=== PATIENT | female | born 1990 | race Hispanic/Latino ===

== ENCOUNTER 2017-11-01 03:45 | Emergency (ER) | payer SELFPAY ==
[2017-11-01] MEDS ORDERED: NA CHLORIDE 0.9% 1,000 ML ONE (04:19)
[2017-11-01 04:43] LABS: Absolute Lymphocytes (CBC) 2.6 K/uL (0.7-4.9); Absolute Monocytes 0.8 K/uL (0.1-1.3); Absolute Neutrophil 14.3 K/uL (1.8-8.0); Basophils % 0.6 % (0-1.3); Eosinophils % 0.9 % (0-4.4); Hematocrit 30.4 % (36.0-45.0); Lymphocytes % 14.6 % (15.3-44.8); MCH 30.8 pg (27.0-35.0); MCV 86.5 fL (80-100); Monocytes % 4.7 % (3.3-12.3); RBC Red Blood Cell Count 3.52 M/uL (3.86-4.86)
[2017-11-01 04:57] LABS: Glucose Level 114 mg/dL (65-120)
[2017-11-01 04:58] LABS: BUN Blood Urea Nitrogen 7 mg/dL (6-20)
[2017-11-01 05:02] LABS: Bicarbonate 25 mEq/L (21-31); Sodium Level 137 mEq/L (135-145)
[2017-11-01] MEDS ORDERED: MORPHINE 4 MG/ML SYR ONE (05:11)
[2017-11-01] MEDS ORDERED: ONDANSETRON 4 MG/2 ML VIAL ONE (05:11)
[2017-11-01] MEDS ORDERED: KCL 20 MEQ/100 mL IVPB 20 MEQ/100 ML BAG IV ONE (05:40)
[2017-11-01] MEDS ORDERED: CEFTRIAXONE/SWI 1gm 1 GM/10 ML SYR ONE (05:40)
--- NOTE | 2017-11-01 06:58 | ER ---
Nurse's Notes [facility] Name: Shira Muse Age: 27 yrs Sex: Female : 1990 Arrival Date: 11/01/2017 Time: 03:50 Bed 15 Private MD: Diagnosis: Pelvic pain. Leukocytosis. S/P ( D and C ). Vaginal bleeding Presentation: 11/01 04:00 Presenting complaint: Patient states: "I am bleeding more than I should, [facility] and about 5 hours ago I began bleeding and I am soaking 4 pads within the hour and my stomach hurts.". Transition of care: patient was not received from another setting of care. Onset of symptoms was October 31, 2017 at 23:00. Risk Assessment: Do you want to hurt yourself or someone else? Patient reports no desire to harm self or others. Initial Sepsis Screen: Does the patient meet any 2 criteria? No. Patient's initial sepsis screen is negative. Does the patient have a suspected source of infection? No. Patient's initial sepsis screen is negative. Care prior to arrival: None. 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 - Social history:: Smoking status: Patient/guardian denies using tobacco. - Ebola Screening: : Patient negative for fever greater than or equal to 101.5 degrees Fahrenheit, and additional compatible Ebola Virus Disease symptoms Patient denies exposure to infectious person. Screenin:42 Abuse screen: Denies threats or abuse. Denies injuries from another. Nutritional bs1 screening: No deficits noted. Tuberculosis screening: No symptoms or risk factors identified. Fall Risk None identified. Assessment: 04:05 General: Appears in no apparent distress. uncomfortable, slender, Behavior is bs1 cooperative, anxious, crying. Pain: Complains of pain in lower abdomen/vaginal area. Neuro: Level of Consciousness is awake, alert, obeys commands, Oriented to person, place, time, situation, Appropriate for age. Cardiovascular: Denies chest pain, shortness of breath, Heart tones S1 S2 present Capillary refill < 3 seconds Patient's skin is warm and dry. Respiratory: Airway is patent Trachea midline Respiratory effort is even, unlabored, Respiratory pattern is regular, symmetrical, Breath sounds are clear bilaterally. GI: Abdomen is round non-distended, Bowel sounds present X 4 quads. Reports lower abdominal pain. GI: Reports nausea. : Reports cramping, lower quadrant(s) pain in suprapubic area lower quadrant(s) vaginal bleeding that is with clots, heavy flow. EENT: No signs and/or symptoms were reported regarding the EENT system. Derm: Skin is intact, Skin is pink, warm \\T\\ dry. Musculoskeletal: Circulation, motion, and sensation intact. Capillary refill < 3 seconds, Range of motion: intact in all extremities. 04:35 Reassessment: Assisted Dr Acosta with Pelvic exam, patient tolerated. bs1 05:15 Reassessment: Patient appears in no apparent distress at this time. Patient and/or bs1 family updated on plan of care and expected duration. Pain level reassessed. Patient is alert, oriented x 3, equal unlabored respirations, skin warm/dry/pink. Friend at bedside, order to give morphine and zofran. No further needs at this time. 05:35 Reassessment: Dr Acosta at bedside informing patient of POC/pending transvaginal US. bs1 Patient states understanding. 06:25 Reassessment: Patient appears in no apparent distress at this time. No changes from bs1 previously documented assessment. Patient and/or family updated on plan of care and expected duration. Pain level reassessed. Patient is alert, oriented x 3, equal unlabored respirations, skin warm/dry/pink. Pending transvaginal Ultrasound. Potassium infusing trough IV. patient in no apparent distress. no further needs. 06:44 Reassessment: Ultrasound at bedside. bs1 07:05 Reassessment: Patient appears in no apparent distress at this time. Patient and/or tw2 family updated on plan of care and expected duration. Pain level reassessed. Patient is alert, oriented x 3, equal unlabored respirations, skin warm/dry/pink. 08:15 Reassessment: Patient appears in no apparent distress at this time. No changes from tw2 previously documented assessment. Patient and/or family updated on plan of care and expected duration. Pain level reassessed. Patient is alert, oriented x 3, equal unlabored respirations, skin warm/dry/pink. Vital Signs: 04:09 BP 136 / 91 LA Sitting (auto/reg); Pulse 88 LA; Resp 14; Temp 98.3(O); Pulse Ox 99% on bs1 R/A; Weight 54.43 kg; Height 5 ft. 1 in. (154.94 cm); Pain 8/10; 04:15 BP 132 / 81; Pulse 87; Resp 15; Pulse Ox 97% on R/A; bs1 04:30 BP 143 / 83; Pulse 92; Resp 16 S; Pulse Ox 100% on R/A; bs1 05:30 BP 115 / 78; Pulse 63; Resp 16; Pulse Ox 99% ; bs1 06:22 BP 114 / 71; Pulse 63; Resp 16; Temp 97.7(O); Pulse Ox 98% on R/A; Pain 6/10; bs1 07:05 BP 120 / 81; Pulse 61; Resp 17; Pulse Ox 99% on R/A; tw2 08:15 BP 110 / 77; Pulse 63; Resp 17; Pulse Ox 98% on R/A; tw2 04:09 Body Mass Index 22.67 (54.43 kg, 154.94 cm) bs1 ED Course: 03:50 Patient arrived in ED. al2 03:52 Nando Lynch, RN is Primary Nurse. ao 03:54 Dangelo Acosta MD is Attending Physician. pkl 03:59 Primary Nurse role handed off by Nando Lynch, VERONICA bs1 03:59 Althea Justice, VERONICA is Primary Nurse. bs1 04:02 Triage completed. bs1 04:25 Inserted saline lock: 22 gauge in right antecubital area, using aseptic technique. bs1 Blood collected. 04:35 Assist provider with pelvic exam: Set up pelvic tray. Performed by Dangelo Acosta MD Patient bs1 tolerated well. 04:42 Arm band placed on left wrist. bs1 04:42 Patient has correct armband on for positive identification. Bed in low position. Call bs1 light in reach. Side rails up X 1. Pulse ox on. NIBP on. 06:56 Ultrasound completed. Patient tolerated well. aa4 06:56 Jl Espitia MD is Referral Physician. pkl 06:59 US Transvaginal Study (Probe) In Process Unspecified. EDMS 07:04 Primary Nurse role handed off by Althea Justice RN tw2 07:04 Delmy Alarcon RN is Primary Nurse. tw2 07:04 Awaiting: COMPLETION OF IV MEDICATION PRIOR TO DISCHARGE. tw2 07:54 Primary Nurse role handed off by Delmy Alarcon RN tw2 07:55 Delmy Alarcon RN is Primary Nurse. tw2 08:16 IV discontinued, intact, bleeding controlled, No redness/swelling at site. Pressure tw2 dressing applied. Administered Medications: 04:37 Drug: NS 0.9% 1000 ml Route: IV; Rate: 125 ml/hr; Site: right antecubital; bs1 08:12 Follow up: Response: No adverse reaction; IV Status: Order to discontinue infusion tw2 05:16 Drug: Zofran 4 mg Route: IVP; Site: right antecubital; bs1 05:44 Follow up: Response: No adverse reaction bs1 05:18 Drug: morphine 2 mg Route: IVP; Site: right antecubital; bs1 05:45 Follow up: Response: No adverse reaction bs1 05:43 Drug: Rocephin 1 grams Route: IV; Rate: bolus; Site: right antecubital; bs1 05:44 Drug: Potassium Chloride 20 mEq Route: IV; Rate: calculated rate; Site: right bs1 antecubital; 08:12 Follow up: Response: No adverse reaction; IV Status: Completed infusion tw2 Outcome: 06:57 Discharge ordered by . pkl 08:16 Discharged to home ambulatory, with significant other. tw2 08:16 Condition: stable 08:16 Discharge instructions given to patient, significant other, Instructed on discharge instructions, follow up and referral plans. medication usage, Demonstrated understanding of instructions, follow-up care, medications, Prescriptions given X 2. 08:17 Patient left the ED. tw2 Signatures: Dispatcher [facility] Dangelo Acosta MD MD pkl Tiffanie Denny aa4 Nando Lynch RN RN ao Wise, Tara, RN RN tw2 Althea Justice, RN RN bs1 Gayle, Charisma gutiérrez
--- NOTE | 2017-11-01 06:58 | EDPHYS ---
Physician Documentation [facility] Name: Shira Muse Age: 27 yrs Sex: Female : 1990 Arrival Date: 11/01/2017 Time: 03:50 Bed 15 Private MD: ED Physician Dangelo Acosta HPI: 11/01 05:04 This 27 yrs old Female presents to ER via Ambulatory with complaints of pkl Vaginal Bleeding, Vaginal Pain. 05:04 The patient presents with pelvic pain, vaginal bleeding that is. Onset: The pkl symptoms/episode began/occurred just prior to arrival, 4 hour(s) ago. Patient [facility] [place] Tonight she started having increase vaginal bleeding and pelvic pain.. 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 - Social history:: Smoking status: Patient/guardian denies using tobacco. - Ebola Screening: : Patient negative for fever greater than or equal to 101.5 degrees Fahrenheit, and additional compatible Ebola Virus Disease symptoms Patient denies exposure to infectious person. ROS: 05:10 Positive for pelvic pain, vaginal bleeding. pkl 05:10 Eyes: Negative for injury, pain, redness, and discharge, ENT: Negative for injury, pain, and discharge, Neck: Negative for injury, pain, and swelling, Cardiovascular: Negative for chest pain, palpitations, and edema, Respiratory: Negative for shortness of breath, cough, wheezing, and pleuritic chest pain, Abdomen/GI: Negative for abdominal pain, nausea, vomiting, diarrhea, and constipation, Back: Negative for injury and pain. 05:10 : Positive for pelvic pain, vaginal bleeding. 05:10 MS/extremity: Negative for acute changes. 05:10 Skin: Negative for rash. 05:10 Neuro: Negative for altered mental status. Exam: 05:10 Head/Face: Normocephalic, atraumatic. Eyes: Pupils equal round and reactive to light, pkl extra-ocular motions intact. Lids and lashes normal. Conjunctiva and sclera are non-icteric and not injected. Cornea within normal limits. Periorbital areas with no swelling, redness, or edema. ENT: Nares patent. No nasal discharge, no septal abnormalities noted. Tympanic membranes are normal and external auditory canals are clear. Oropharynx with no redness, swelling, or masses, exudates, or evidence of obstruction, uvula midline. Mucous membranes moist. Neck: Trachea midline, no thyromegaly or masses palpated, and no cervical lymphadenopathy. Supple, full range of motion without nuchal rigidity, or vertebral point tenderness. No Meningismus. Chest/axilla: Normal chest wall appearance and motion. Nontender with no deformity. No lesions are appreciated. Cardiovascular: Regular rate and rhythm with a normal S1 and S2. No gallops, murmurs, or rubs. Normal PMI, no JVD. No pulse deficits. Respiratory: Lungs have equal breath sounds bilaterally, clear to auscultation and percussion. No rales, rhonchi or wheezes noted. No increased work of breathing, no retractions or nasal flaring. 05:10 Abdomen/GI: Bowel sounds: normal, Palpation: soft, mild abdominal tenderness, in the suprapubic area. 05:10 Back: Exam negative for acute changes. 05:10 : Pelvic Exam: Speculum exam: mild bleeding, a female verification engineer was present for the exam. 05:10 Musculoskeletal/extremity: Exam is negative for acute changes. 05:10 Skin: Exam negative for rash. 05:10 Neuro: Orientation: is normal, Mentation: is normal, Cranial nerves: grossly normal, Motor: is normal. Vital Signs: 04:09 BP 136 / 91 LA Sitting (auto/reg); Pulse 88 LA; Resp 14; Temp 98.3(O); Pulse Ox 99% on bs1 R/A; Weight 54.43 kg; Height 5 ft. 1 in. (154.94 cm); Pain 8/10; 04:15 BP 132 / 81; Pulse 87; Resp 15; Pulse Ox 97% on R/A; bs1 04:30 BP 143 / 83; Pulse 92; Resp 16 S; Pulse Ox 100% on R/A; bs1 05:30 BP 115 / 78; Pulse 63; Resp 16; Pulse Ox 99% ; bs1 06:22 BP 114 / 71; Pulse 63; Resp 16; Temp 97.7(O); Pulse Ox 98% on R/A; Pain 6/10; bs1 07:05 BP 120 / 81; Pulse 61; Resp 17; Pulse Ox 99% on R/A; tw2 08:15 BP 110 / 77; Pulse 63; Resp 17; Pulse Ox 98% on R/A; tw2 04:09 Body Mass Index 22.67 (54.43 kg, 154.94 cm) bs1 MDM: 03:54 Patient medically screened. pkl 05:17 Data reviewed: vital signs, nurses notes, lab test result(s). pkl 05:56 Data reviewed: radiologic studies, ultrasound. pkl 11/01 04:18 Order name: CBC with Diff; Complete Time: 05:03 pkl 11/01 04:18 Order name: Chem 7; Complete Time: 05:31 pkl 11/01 04:18 Order name: Rh Typing; Complete Time: 05:03 pkl 11/01 04:18 Order name: Quantitative Hcg; Complete Time: 05:31 pkl 11/01 05:46 Order name: US Transvaginal Study (Probe) pkl Administered Medications: 04:37 Drug: NS 0.9% 1000 ml Route: IV; Rate: 125 ml/hr; Site: right antecubital; bs1 08:12 Follow up: Response: No adverse reaction; IV Status: Order to discontinue infusion tw2 05:16 Drug: Zofran 4 mg Route: IVP; Site: right antecubital; bs1 05:44 Follow up: Response: No adverse reaction bs1 05:18 Drug: morphine 2 mg Route: IVP; Site: right antecubital; bs1 05:45 Follow up: Response: No adverse reaction bs1 05:43 Drug: Rocephin 1 grams Route: IV; Rate: bolus; Site: right antecubital; bs1 05:44 Drug: Potassium Chloride 20 mEq Route: IV; Rate: calculated rate; Site: right bs1 antecubital; 08:12 Follow up: Response: No adverse reaction; IV Status: Completed infusion tw2 Disposition: 11/01/17 06:57 Discharged to Home. Impression: Pelvic pain. Leukocytosis. S/P ( D and C ). Vaginal bleeding. - Condition is Stable. - Prescriptions for Ultram 50 mg Oral Tablet - take 1 tablet by ORAL route every 8 hours As needed; 15 tablet. Doxycycline Hyclate 100 mg Oral Tablet - take 1 tablet by ORAL route every 12 hours; 14 tablet. - Medication Reconciliation Form, Thank You Letter, Antibiotic Education, Prescription Opioid Use, Family Work Release form. - Follow up: Jl Espitia MD; When: 2 - 3 days; Reason: Re-evaluation by your physician. - Problem is new. - Symptoms have improved. Signatures: Dispatcher [employer] EDMS Dangelo Acosta MD MD pkl Delmy Alarcon RN RN tw2 Althea Justice RN RN bs1 Corrections: (The following items were deleted from the chart) 08:17 06:57 11/01/2017 06:57 Discharged to Home. Impression: Pelvic pain. Leukocytosis. S/P tw2 ( D and C ). Vaginal bleeding. Condition is Stable. Forms are Medication Reconciliation Form, Thank You Letter, Antibiotic Education, Prescription Opioid Use. Follow up: Jl Espitia; When: 2 - 3 days; Reason: Re-evaluation by your physician. Problem is new. Symptoms have improved. pkl
[2017-11-01 08:46] VITALS: TEMP 97.7
[2017-11-01 08:48] VITALS: BP 110/77; O2SAT 98
--- NOTE | 2017-11-01 09:07 | RAD REPORT ---
EXAM DESCRIPTION: US - Transvaginal Study Probe - 11/01/2017 6:59 am CLINICAL HISTORY: Heavy vaginal bleeding, history of performed September 26 Preliminary findings provided at time of the study. COMPARISON: None. TECHNIQUE: Endovaginal sonography was performed. FINDINGS: Uterus is 10.3 x 5.8 x 5.8 cm. Endometrial stripe is thickened in the fundus at 2.2 cm. Th is is believed to be thickened endometrial tissue. Echogenic hemorrhagic material is possible. Retain ed products of conception not suspected. No myometrial mass. Endometrium -myometrium interface is pre served. No abnormal fluid or blood in the cul-de-sac. Right ovary and right adnexa are unremarkable. Left ova ry could not be identified. The left adnexa shows no suspicious finding. IMPRESSION: Thickened endometrial stripe believed to be endometrial tissue. Patient may have some he morrhagic material within the endometrial cavity. No retained products of conception suspected. No right ovarian or right adnexal finding. Nonvisualization of the left ovary. No left adnexal abnormality.
== END 2017-11-01 08:17 | disposition home or self-care (01) ==
LOC: ER 03:45
DX: R10.2 Pelvic and perineal pain (principal); D72.829 Elevated white blood cell count, unspecified; N93.9 Abnormal uterine and vaginal bleeding, unspecified; Z88.6 Allergy status to analgesic agent; Z88.0 Allergy status to penicillin; Z98.890 Other specified postprocedural states
CPT/HCPCS: 36415; 76830; 80048; 84702; 85025; 86901; 96361; 96365; 96366; 96375; 99284; J0696; J2405; J7030

== ENCOUNTER 2020-03-10 20:36 | Emergency (ER) | payer SELFPAY ==
[2020-03-10] MEDS ORDERED: ACETAMINOPHEN 500 MG TAB ONE (21:49)
--- NOTE | 2020-03-10 22:27 | ER ---
Nurse's Notes [facility] Name: Shira Muse Age: 30 yrs Sex: Female : 1990 Arrival Date: 03/10/2020 Time: 20:38 Bed 15 Private MD: Diagnosis: Concussion without loss of consciousness Presentation: 03/10 20:50 Chief complaint: Patient states: Tripped at 1 am last night. hit left side of head, + ll1 ETOH. Can't remember if she had LOC. States she had N/V today. Coronavirus screen: Client denies travel out of the [place] in the last 14 days. At this time, the client does not indicate any symptoms associated with coronavirus-19. Ebola Screen: Patient denies travel to an Ebola-affected area in the 21 days before illness onset. Initial Sepsis Screen: Does the patient meet any 2 criteria? HR > 90 bpm. No. Patient's initial sepsis screen is negative. Does the patient have a suspected source of infection? Yes: Other: Headache. Risk Assessment: Do you want to hurt yourself or someone else? Patient reports no desire to harm self or others. Onset of symptoms was March 10, 2020. 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 - Social history:: Smoking status: Patient reports the use of cigarette tobacco products, smokes one pack cigarettes per day. Screenin:42 Abuse screen: Denies threats or abuse. Denies injuries from another. Nutritional sg screening: No deficits noted. Tuberculosis screening: No symptoms or risk factors identified. Never had TB. Fall Risk None identified. Assessment: 21:00 General: Appears in no apparent distress. comfortable, Behavior is calm, cooperative, jb4 appropriate for age. Pain: Complains of pain in headache. Pain does not radiate. Pain. Neuro: Level of Consciousness is awake, alert, obeys commands, Oriented to person, place, time, situation. Cardiovascular: Respiratory: Airway is patent Respiratory effort is even, unlabored, Respiratory pattern is regular, symmetrical. GI: No signs and/or symptoms were reported involving the gastrointestinal system. : No signs and/or symptoms were reported regarding the genitourinary system. EENT: No signs and/or symptoms were reported regarding the EENT system. Derm: Skin is intact, Skin is pink, warm \T\ dry. Musculoskeletal: Circulation, motion, and sensation intact. Range of motion: intact in all extremities. 21:56 Reassessment: Patient appears in no apparent distress at this time. Patient and/or jb4 family updated on plan of care and expected duration. Pain level reassessed. Patient is alert, oriented x 3, equal unlabored respirations, skin warm/dry/pink. Vital Signs: 20:50 BP 147 / 99; Pulse 93; Resp 18; Temp 98.2; Pulse Ox 100% ; Weight 52.16 kg; Height 5 ll1 ft. 1 in. (154.94 cm); Pain 8/10; 22:00 BP 134 / 96; Pulse 88; Resp 16; Pulse Ox 100% on R/A; jb4 20:50 Body Mass Index 21.73 (52.16 kg, 154.94 cm) ll1 ED Course: 20:38 Patient arrived in ED. cf2 20:52 Triage completed. ll1 20:52 Arm band placed on Patient placed in an exam room, on a stretcher. ll1 20:53 Juan Falcon, VERONICA is Primary Nurse. jb4 20:57 Teddy Coates MD is Attending Physician. 7 21:39 CT Head Brain wo Cont In Process Unspecified. EDMS 22:26 Patricio Bloom MD is Referral Physician. 7 22:42 Patient has correct armband on for positive identification. sg 22:42 No provider procedures requiring assistance completed. Patient did not have IV access sg during this emergency room visit. Administered Medications: 21:46 Drug: Tylenol 1000 mg Route: PO; jb4 22:42 Follow up: Response: No adverse reaction; Pain is unchanged, physician notified sg Outcome: 22:26 Discharge ordered by . 7 22:42 Discharged to home ambulatory, with family. sg 22:42 Condition: good 22:42 Discharge instructions given to patient, family, Instructed on discharge instructions, follow up and referral plans. safety practices, Demonstrated understanding of instructions, follow-up care. 22:45 Patient left the ED. jb4 Signatures: Dispatcher [employer] EDRyan Payan RN RN sg Juan Falcon RN RN jb4 Betty Denny 2 Ariel Holden RN RN ll1 Teddy Coates MD MD [id number]
--- NOTE | 2020-03-10 22:27 | EDPHYS ---
Physician Documentation [facility] Name: Shira Muse Age: 30 yrs Sex: Female : 1990 Arrival Date: 03/10/2020 Time: 20:38 Bed 15 Private MD: ED Physician Teddy Coates HPI: 03/10 21:54 This 30 yrs old Female presents to ER via Ambulatory with complaints of Fall mh7 Injury, Head Injury Without LOC-Adult. 21:54 Details of fall: The patient fell from an upright position, while walking. Onset: The mh7 symptoms/episode began/occurred this morning, at 01:00. Associated injuries: The patient sustained injury to the head, contusion, tenderness. Severity of symptoms: At their worst the symptoms were moderate, earlier today, in the emergency department the symptoms are unchanged. Patient reports tripping and falling while outside this morning and hitting the left side of her head on a trailer hitch. She admits to drinking alcohol prior to fall but denies any LOC. She denies any neck pain, chest pain, abdominal pain, SOB, nausea, vomiting, numbness/tingling, or weakness.. 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 - Social history:: Smoking status: Patient reports the use of cigarette tobacco products, smokes one pack cigarettes per day. ROS: 21:54 Constitutional: Negative for fever, chills, and weight loss, Eyes: Negative for injury, mh7 pain, redness, and discharge, ENT: Negative for injury, pain, and discharge, Neck: Negative for injury, pain, and swelling, Cardiovascular: Negative for chest pain, palpitations, and edema, Respiratory: Negative for shortness of breath, cough, wheezing, and pleuritic chest pain, Abdomen/GI: Negative for abdominal pain, nausea, vomiting, diarrhea, and constipation, Back: Negative for injury and pain, : Negative for injury, bleeding, discharge, and swelling, MS/Extremity: Negative for injury and deformity, Skin: Negative for injury, rash, and discoloration, Psych: Negative for depression, anxiety, suicide ideation, homicidal ideation, and hallucinations, Allergy/Immunology: Negative for hives, rash, and allergies, Endocrine: Negative for neck swelling, polydipsia, polyuria, polyphagia, and marked weight changes, Hematologic/Lymphatic: Negative for swollen nodes, abnormal bleeding, and unusual bruising. Exam: 21:54 Eyes: Pupils equal round and reactive to light, extra-ocular motions intact. Lids and mh7 lashes normal. Conjunctiva and sclera are non-icteric and not injected. Cornea within normal limits. Periorbital areas with no swelling, redness, or edema. ENT: Nares patent. No nasal discharge, no septal abnormalities noted. Tympanic membranes are normal and external auditory canals are clear. Oropharynx with no redness, swelling, or masses, exudates, or evidence of obstruction, uvula midline. Mucous membranes moist. Neck: Trachea midline, no thyromegaly or masses palpated, and no cervical lymphadenopathy. Supple, full range of motion without nuchal rigidity, or vertebral point tenderness. No Meningismus. Chest/axilla: Normal chest wall appearance and motion. Nontender with no deformity. No lesions are appreciated. Cardiovascular: Regular rate and rhythm with a normal S1 and S2. No gallops, murmurs, or rubs. Normal PMI, no JVD. No pulse deficits. Respiratory: Lungs have equal breath sounds bilaterally, clear to auscultation and percussion. No rales, rhonchi or wheezes noted. No increased work of breathing, no retractions or nasal flaring. Abdomen/GI: Soft, non-tender, with normal bowel sounds. No distension or tympany. No guarding or rebound. No evidence of tenderness throughout. Back: No spinal tenderness. No costovertebral tenderness. Full range of motion. Skin: Warm, dry with normal turgor. Normal color with no rashes, no lesions, and no evidence of cellulitis. MS/ Extremity: Pulses equal, no cyanosis. Neurovascular intact. Full, normal range of motion. Neuro: Awake and alert, GCS 15, oriented to person, place, time, and situation. Cranial nerves II-XII grossly intact. Motor strength 5/5 in all extremities. Sensory grossly intact. Cerebellar exam normal. Normal gait. Psych: Awake, alert, with orientation to person, place and time. Behavior, mood, and affect are within normal limits. 21:54 Constitutional: The patient appears in no acute distress, alert, awake, uncomfortable. 21:54 Head/face: Noted is swelling, that is mild, of the left scalp, tenderness, that is moderate, of the left scalp. Vital Signs: 20:50 BP 147 / 99; Pulse 93; Resp 18; Temp 98.2; Pulse Ox 100% ; Weight 52.16 kg; Height 5 ll1 ft. 1 in. (154.94 cm); Pain 8/10; 22:00 BP 134 / 96; Pulse 88; Resp 16; Pulse Ox 100% on R/A; jb4 20:50 Body Mass Index 21.73 (52.16 kg, 154.94 cm) ll1 MDM: 21:06 Patient medically screened. [facility] 22:24 Differential diagnosis: abrasion, closed head injury, contusion, concussion. Data [facility] reviewed: vital signs, nurses notes, radiologic studies, CT scan. Data interpreted: Pulse oximetry: on room air is 100 %. Interpretation: normal. Counseling: I had a detailed discussion with the patient and/or guardian regarding: the historical points, exam findings, and any diagnostic results supporting the discharge/admit diagnosis, the presence of at least one elevated blood pressure reading (>120/80) during this emergency department visit, radiology results, the need for outpatient follow up, a neurologist, to return to the emergency department if symptoms worsen or persist or if there are any questions or concerns that arise at home. Response to treatment: the patient's symptoms have markedly improved after treatment. 03/10 21:06 Order name: CT Head Brain wo Cont [facility] Administered Medications: 21:46 Drug: Tylenol 1000 mg Route: PO; jb4 22:42 Follow up: Response: No adverse reaction; Pain is unchanged, physician notified sg Disposition: 03/10/20 22:26 Discharged to Home. Impression: Concussion without loss of consciousness. - Condition is Stable. - Discharge Instructions: Post-Concussion Syndrome, Evhh-on-Mcdc, Concussion, Adult, Jbxg-fd-Wqhl. - Medication Reconciliation Form, Thank You Letter, Antibiotic Education, Prescription Opioid Use form. - Follow up: Private Physician; When: 1 - 2 days; Reason: Worsening of condition, Recheck today's complaints, Continuance of care, Re-evaluation by your physician. Follow up: Patricio Bloom MD; When: 1 - 2 days; Reason: Worsening of condition, Recheck today's complaints. - Problem is new. - Symptoms have improved. Signatures: Dispatcher [employer] EDMS Juan Falcon RN RN jb4 Ariel Holden RN RN ll1 Teddy Coates MD MD mh7 Ryan Alex RN sg Corrections: (The following items were deleted from the chart) 22:45 22:26 03/10/2020 22:26 Discharged to Home. Impression: Concussion without loss of jb4 consciousness. Condition is Stable. Forms are Medication Reconciliation Form, Thank You Letter, Antibiotic Education, Prescription Opioid Use. Follow up: Private Physician; When: 1 - 2 days; Reason: Worsening of condition, Recheck today's complaints, Continuance of care, Re-evaluation by your physician. Follow up: Patricio Bloom; When: 1 - 2 days; Reason: Worsening of condition, Recheck today's complaints. Problem is new. Symptoms have improved. 7
[2020-03-10 22:51] VITALS: TEMP 98.2; O2SAT 100
[2020-03-10 22:52] VITALS: BP 134/96
--- NOTE | 2020-03-11 11:09 | RAD REPORT ---
EXAM DESCRIPTION: Head Brain Wo Cont CLINICAL HISTORY: 30 years Female TRAUMA COMPARISON: None TECHNIQUE: Images were obtained in the axial, sagittal, and coronal planes. This exam was performed according to our departmental dose-optimization program which includes use of Automated Exposure Control, adjustment of the mA and/or kV according to patient size and/or use o f iterative reconstruction technique. FINDINGS: Ventricular system appears normal. No abnormal areas of increased attenuation seen. No extra-axial fluid collection is noted No evidence for skull fracture. Symmetric aeration of mastoid air cells bilaterally. Unremarkable par anasal sinuses. IMPRESSION: No acute intracranial abnormality. No evidence for hemorrhage, mass lesion, or large acu te infarction. Electronically signed by: Ashwini Rivera MD 03/10/2020 10:04 PM CDT Due to temporary technical issues with the PACS/Fluency reporting system, reports are being signed by the in house radiologist without review as a courtesy to ensure prompt reporting. The interpreting r adiologist is fully responsible for the content of the report.
== END 2020-03-10 22:45 | disposition home or self-care (01) ==
LOC: ER 20:36
DX: S06.0X0A Concussion without loss of consciousness, initial encounter (principal); W01.198A Fall on same level from slipping, tripping and stumbling with subsequent striking against other object, initial encounter; Y93.01 Activity, walking, marching and hiking; Y92.9 Unspecified place or not applicable; F17.210 Nicotine dependence, cigarettes, uncomplicated; Z88.0 Allergy status to penicillin; Z88.6 Allergy status to analgesic agent
CPT/HCPCS: 70450; 99283

== ENCOUNTER 2021-07-19 11:19 | Emergency (ER) | payer SELFPAY ==
--- OUTSIDE RECORDS SUMMARY | 2021-07-19 11:23 | XMS REPORT | Continuity of Care Document ---
:1990 Author Organization [facility] t Address [address] [place] [address] Care Team Providers Name Role Phone Pcp, Does Not Have A Primary Care Physician Remy MARTIN T Attending Clinician Unavailable Only, Db Test Attending Clinician Unavailable Pasqualerahirobb BASILIOP Attending Clinician Abebe Calderón MD Attending Clinician Abebe CALDERÓN Attending Clinician Unavailable Payers Payer Name Policy Type Policy Number Effective Date Expiration Date S ource Problems Condition Condition Condition Status Onset Resolution Last Treating Co mments Source Name Details Category Date Date Treatment Clinician Date No known No known Disease Unive rs active active ity of problems problems [facility] Allergies, Adverse Reactions, Alerts Allergy Allergy Status Severity Reaction(s) Onset Inactive Treating Comm ents Source Name Type Date Date Clinician Aspirin Propensi Active Anaphylaxis Un lorrie ty to 05-17 ity of adverse 00:00: [place] reaction 00 [facility] s [facility] Penicill Propensi Active Anaphylaxis 0 U nivers in ty to 05-17 ity of adverse 00:00: [place] reaction 00 Medical s Branch ASPIRIN DRUG Active Anaphylaxis 0 Univ ers INGREDI 05-17 ity of 00:00: [place] 00 Medical Branch PENICILL DRUG Active Anaphylaxis Uni vers IN INGREDI 05-17 ity of 00:00: [place] 00 Medical Branch Social History Social Habit Start Date Stop Date Quantity Comments Source Exposure to Not sure [facility] SARS-CoV-2 (event) Medica l Branch Sex Assigned At [birth year] [facility] 00:00:00 00:00:00 Medical Branch Smoking Status Start Date Stop Date Source Unknown if ever smoked [facility] Medications Ordered Filled Start Stop Current Ordering Indication Dosage Frequency Signature Comments Components Source Medication Medication Date Date Medication? Clinician (SIG) Name Name thiamine Yes IV Univers (VITAMIN 05-18 Infusion, ity of B1) 100 mg, 00:00[place] 150 [place] fo[place] 00 mL/hr, Medical (FOLATE) 1 CONTINUOUS Bra nch mg in D5W , Starting 0.45% NaCl Wed05/17/20 (1/2NS) IV at 1800, Solution Until Discontinu ed, 1,000 mL NaCl 0.9% 1000mL at 999 Uni vers (NS) bolus 05-17 mL/hr, ity of infusion 23:00: 23:45 1,000 mL, [place] 1,000 mL 00 :00 IV Medical Infusion, Branch ONCE, 1 dose, Wed05/17/20 at 1700, JOSE No known No Univers medications 05-17 ity of 16:52: [address] No known No Univers medications 05-17 ity of 16:52: [address] No known No Univers medications 05-17 ity of 16:52: [address] No known No [facility] Vital Name Observation Time Observation Value Comments Source Systolic blood 2020-05-18 03:01:00 131 mm[Hg] Univer [facility] Diastolic blood 2020-05-18 03:01:00 84 mm[Hg] Unive rsity [facility] Heart rate 2020-05-18 03:01:00 80 /min [facility] Respiratory rate 2020-05-18 03:01:00 15 /min [facility] Oxygen saturation in 2020-05-18 03:01:00 100 /min [facility] Arterial blood by [facility] Pulse oximetry Branch Body weight 2020-05-17 22:52:00 57 kg [facility] BMI 2020-05-17 22:52:00 23.74 kg/m2 [facility] Body temperature 2020-05-17 22:29:00 35.94 Stephanie [facility] Body height 2020-05-17 22:29:00 154.9 cm [facility] Procedures Procedure Date / Time Performing Clinician Source Performed POCT TEST 2020-05-17 23:13:00 Leatha Calderón [facility] LIPASE 2020-05-17 23:12:00 rFances Calderónian Abebe [facility] THYROID STIMULATING 2020-05-17 23:12:00 [facility] HEPATIC FUNCTION PANEL 2020-05-17 23:12:00 [id number] (ALB,T.PRO,BILI [facility] T,BU/BC,ALT,AST,ALK PHOS) BASIC METABOLIC PANEL 2020-05-17 23:12:00 Leatha Calderón [facility] (NA, K, CL, CO2, Medical Branch GLUCOSE, BUN, CREATININE, CA) ETHANOL 2020-05-17 23:12:00 [facility]FF 2020-05-17 23:12:00 [facility] URINALYSIS 2020-05-17 23:12:00 [facility] Encounters Start End Encounter Admission Attending Care Care Encounter Source Date/Time Date/Time Type Type Clinicians Facility Department ID 2021-05-22 2021-05-22 KERRY Fairchild [id number] Univers 00:00:00 00:00:00 (Out) Kyara REDDY [id number] it y of [facility] 4.2.7.2.686 [place] [id number] [address] 2021-05-22 2021-05-22 KERYR Fairchild [id number] Univers 00:00:00 00:00:00 (Out) Kyara REDDY 350.1.13.10 it y of [facility] 4.2.7.2.686 [place] [id number] [address] 2021-05-20 2021-05-20 Laboratory Only, Ang Db Test [facility] 1.2.8 40.114 [id number] Univers 17:15:00 17:30:00 Only Karen Chen [facility] 350.1.13.10 ity of [place] 4.2.7.2.686 [place]cio as PITO?BLEA [id number] Me dical [address] MEDICAL OFFICE BUILDING 2020-05-17 2020-05-17 Emergency Leatha Calderón [facility] [id number] Univers 16:31:00 22:02:[address] 350.1.13.10 i [place] 4[place]2.686 [place] [id number] [facility] 084 Branch 2020-05-17 2020-05-17 Emergency X LEATHA CALDERÓN [facility] ERT [id number] Univers 16:31:00 16:31:00 [facility] Results Test Description Test Time Test Comments Results Result Comments Source Ethanol Level 2020-05-18 00:37:00 Test Item Value Reference Range Interpretation Comme nts ALCOHOL (test code = 2272270442) 301 mg/dL ROMÁN (test code = ROMÁN) <10 Konamtzw28-146 Toxic>100 Depression of WEB SITE ADMIN>400 Fatalities [facility]orted [facility] [id number] 00:28:00 Test Item Value Reference Range Interpretation Comments TSH (test code = See_Comment [Automated message] 6219224734) The system [employer] generated this result transmitted ref erence range: 0.45 - 4 .70 mIU/L. The refe rence range was not u sed to interpret this result as normal/abnor mal. Lab Interpretation (test Normal code = 27892-9) [facility] (NA, K, CL, CO2, GLUCOSE, BUN, CREATININE, CA)2020-05-17 23:58:00 Test Item Value Reference Range Interpretation Comments NA (test code = 148 mmol/L 135-145 H 2016092920) K (test code = 3.9 mmol/L 3.5-5 0436244095) CL (test code = 106 mmol/L 98-108 3772945750) CO2 TOTAL (test code = 29 mmol/L 23-31 8945573401) AGAP (test code = 2-16 7252051929) BUN (test code = 6 mg/dL 7-23 L 9739938037) GLUCOSE (test code = 101 mg/dL 70-110 5578795150) CREATININE (test code = 0.54 mg/dL 0.5-1.04 8208170018) CALCIUM (test code = 9.2 mg/dL 8.6-10.6 6886170784) eGFR Calculation mL/min/1.73m2 (Non-) (test code = 7654794990) eGFR Calculation mL/min/1.73m2 () (test code = 4352006621) ROMÁN (test code = ROMÁN) Association of Glomerular Filtration Rate (GFR) and Staging of Kidney Disease* + --+ --+ ------+| GFR (mL/min/1.73 m2) ?| With Kidney Damage ?| ?Without Kidney Damage+ --------+ --------+ +| ?>90 ?| ?Stage one ?| ? Normal ?+ ---+ ---+ -------+| ?60-89 ?| ?Stage two ?| ? Decreased GFR ? + --+ --+ ------+| ?30-59 ?| ?Stage three ?| ? Stage three ? + --+ --+ ------+| ?15-29 ?| ?Stage four ? | ? Stage four ?+ ---+ ---+ -------+| ?<15 (or dialysis) ? ?| ?Stage five ? | ? Stage five ?+ ---+ ---+ -------+ *Each stage assumes the associated GFR level has been in effect for at least three months. ?Stages 1 to 5, with or without kidney disease, indicate chronic kidney disease. Notes: Determination of stages one and two (with eGFR >59mL/min/1.73 m2) requires estimation of kidney damage for at least three months as defined by structural or functional abnormalities of the kidney, manifested by either:Pathological abnormalities or Markers of kidney damage (including abnormalities in the composition of the blood or urine or abnormalities in imaging tests). Lab Interpretation Abnormal (test code = 52464-1) [facility] (ALB, T.PRO, BILI T, BU/BC, ALT, AST, ALK PHOS)2020-05-17 23:58:00 Test Item Value Reference Range Interpretation Comments TOTAL BILI (test code = 0218076822) 0.4 mg/dL 0.1-1.1 BILI UNCON (test code = 0044994326) 0.3 mg/dL 0.1-1.1 BILI CONJ (test code = 1082658763) 0.0 mg/dL 0-0.3 T PROTEIN (test code = 2534993258) 8.3 g/dL 6.3-8.2 H ALBUMIN (test code = 3598894328) 4.9 g/dL 3.5-5 ALK PHOS (test code = 4691149583) 78 U/L 34-122 ALTv (test code = 1742-6) 9 U/L 5-35 AST(SGOT) (test code = 8978200376) 37 U/L 13-40 Lab Interpretation (test code = Abnormal 72800-3) [facility] [id number] 23:58:00 Test Item Value Reference Range Interpretation Comments LIPASE (test code = 6947407547) 88 U/L 0-220 Lab Interpretation (test code = Normal 27404-2) [facility] Center[facility]inalysis2021-01-01 23:43:00 Test Item Value Reference Range Interpretation Comments APPEARANCE (test code = Clear Clear 4456574187) COLOR (test code = Straw Yellow A 8037962007) PH (test code = 4.8-8.0 A 0547392130) SP GRAVITY (test code = 1.003-1.030 2319186991) GLU U QUAL (test code = Normal Normal 4861702824) BLOOD (test code = Negative Negative 9190260407) KETONES (test code = Negative Negative 1082701141) PROTEIN (test code = Negative Negative 2887-8) UROBILIN (test code = Normal Normal 7718828529) BILIRUBIN (test code = Negative Negative 4642533460) NITRITE (test code = Negative Negative 4268427538) LEUK GILBERTO (test code = Negative Negative 3739956486) RBC/HPF (test code = See_Comment [Autom ated message] 2568331279) The system [employer] generated this result transmitted ref erence range: 0 - 3 HP F. The reference range was not used to int erpret this result as normal/abnormal . WBC/HPF (test code = See_Comment [Autom ated message] 3368407370) The system [employer] generated this result transmitted ref erence range: 0 - 5 HP F. The reference range was not used to int erpret this result as normal/abnormal . BACTERIA (test code = Negative Negative 9061373110) MUCOUS (test code = Slight Negative LPF A 2918508417) SQ EPITH (test code = HPF 4909207736) Lab Interpretation (test Abnormal code = 76365-9) [facility] with [id number] 23:35:00 Test Item Value Reference Range Interpretation Comments WBC (test code = See_Comment H [Automated 6690-2) message] The sy stem which generated this result transmitted reference range : 4.30 - 11.10 10*3/?L. The reference range was not used to interpret this result as normal/abnormal . RBC (test code = See_Comment H [Automated 789-8) message] The sy stem which generated this result transmitted reference range : 3.93 - 5.25 10*6/?L. The reference range was not used to interpret this result as normal/abnormal . HGB (test code = 15.4 g/dL 11.6-15 H 718-7) HCT (test code = 44.9 % 35.7-45.2 4544-3) MCV (test code = 83.6 fL 80.6-95.5 787-2) MCH (test code = 28.7 pg 25.9-32.8 785-6) MCHC (test code = 34.3 g/dL 31.6-35.1 786-4) RDW-SD (test code = 43.8 fL 39-49.9 08480-4) RDW-CV (test code = 14.6 % 12-15.5 788-0) PLT (test code = See_Comment [Automated 777-3) message] The sy stem which generated this result transmitted reference range : 166 - 358 10*3/ ?L. The reference r madan was not used to interpret this result as normal/abnormal . MPV (test code = 9.4 fL 9.5-12.9 L 78524-0) NRBC/100 WBC (test See_Comment [Automat ed code = 5832591145) message] The system which generated this result transmitted reference range : 0.0 - 10.0 /100 WBCs. The refer ence range was not u sed to interpret th is result as normal/abnormal . NRBC x10^3 (test code <0.01 See_Comment [Auto mated = 8384312194) message] The s ystem which generated this result transmitted reference range : 10*3/?L. The reference range was not used to interpret this result as normal/abnormal . GRAN MAT (NEUT) % 57.7 % (test code = 770-8) IMM GRAN % (test code 0.40 % = 8468733318) LYMPH % (test code = 33.8 % 736-9) MONO % (test code = 5.7 % 5905-5) EOS % (test code = 1.4 % 713-8) BASO % (test code = 1.0 % 706-2) GRAN MAT x10^3(ANC) 6.47 10*3/uL 1.88-7.09 (test code = 6366203475) IMM GRAN x10^3 (test 0.04 10*3/uL 0-0.06 code = 9985264044) LYMPH x10^3 (test code 3.79 10*3/uL 1.32-3.29 H = 731-0) MONO x10^3 (test code 0.64 10*3/uL 0.33-0.92 = 742-7) EOS x10^3 (test code = 0.16 10*3/uL 0.03-0.39 711-2) BASO x10^3 (test code 0.11 10*3/uL 0.01-0.07 H = 704-7) Lab Interpretation Abnormal (test code = 68499-3) [facility] [id number] 23:13:00 Test Item Value Reference Range Interpretation Comments POCT PREG (test code = 1605) negative On board controls acceptable with positive C Line (test code = 3574) POCT PREG LOT # (test code = 3575) [id number] POCT PREG TEST DATE (test 09-13-2021 code = 3576) Lab Interpretation (test code = Normal 75474-3) [facility]"
[2021-07-19] MEDS ORDERED: LORazepam 2 MG/ML VIAL ONE (11:42)
[2021-07-19] MEDS ORDERED: NA CHLORIDE 0.9% 1,000 ML ONE (11:42)
[2021-07-19 11:45] LABS: Absolute Lymphocytes (CBC) 3.8 K/uL (0.7-4.9); Hematocrit 48.1 % (36.0-45.0); Lymphocytes % 22.9 % (15.3-44.8); MPV 7.3 fL (7.6-11.3); RBC Red Blood Cell Count 5.52 M/uL (3.86-4.86)
[2021-07-19 11:52] LABS: Protime INR 1.13
[2021-07-19 11:58] LABS: Magnesium 1.9 mg/dL (1.8-2.4); Potassium 3.5 mmol/L (3.5-5.1)
--- NOTE | 2021-07-19 12:02 | RAD REPORT ---
EXAM DESCRIPTION: CT - Head Brain Wo Cont - 07/19/2021 11:55 am CLINICAL HISTORY: Dizziness;Numbness COMPARISON: Head Brain Wo Cont dated 03/10/2020; CTFACIAL BONES W MPR dated 11/18/2011 TECHNIQUE: All CT scans are performed using dose optimization technique as appropriate and may inclu de automated exposure control or mA/KV adjustment according to patient size. FINDINGS: No intracranial hemorrhage, hydrocephalus or extra-axial fluid collection.No areas of brai n edema or evidence of midline shift. Mucosal thickening in the right maxillary sinus. The calvarium is intact. IMPRESSION: No acute intracranial abnormality.
[2021-07-19 13:11] LABS: Urine Blood Negative (Negative); Urine Glucose Negative (Negative); Urine Protein 1+ (Negative); Urine Specific Gravity 1.015 (1.005-1.030); Urine pH 8.5 (5.0-7.0)
[2021-07-19 13:26] LABS: Urine Specific Gravity/Preg 1.015 (1.005-1.030)
[2021-07-19 13:27] LABS: Barbiturates NEGATIVE (NEGATIVE); Benzodiazepines NEGATIVE (NEGATIVE); Cocaine NEGATIVE (NEGATIVE); METHAMPHETAM NEGATIVE (NEGATIVE); Methadone NEGATIVE (NEGATIVE); Opiates NEGATIVE (NEGATIVE); Phencyclidine NEGATIVE (NEGATIVE); THC Cannibis NEGATIVE (NEGATIVE)
[2021-07-19 13:36] LABS: Urine Bacteria 20-50 /HPF (<20); Urine Mucus MOD /HPF (NONE SEEN); Urine RBC <5 /HPF (NONE SEEN)
[2021-07-19 13:45] LABS: SARS-COV-2 RT PCR NEGATIVE (NEGATIVE)
--- NOTE | 2021-07-19 14:09 | EDPHYS ---
Physician Documentation [facility] Name: Shira Muse Age: 31 yrs Sex: Female : 1990 Arrival Date: 07/19/2021 Time: 11:23 Bed 4 Private MD: ED Physician Dennis Shields HPI: 07/19 11:35 This 31 yrs old Female presents to ER via Wheelchair with complaints of rn Numbness, chills, weakness. 11:35 The patient's problem is reported as paresthesias, all over, weakness, that is rn generalized. Onset: The symptoms/episode began/occurred 2 hour(s) ago. Duration: This was a single incident, The episode is continuous. The symptoms are alleviated by nothing. The symptoms are aggravated by nothing. Associated signs and symptoms: Pertinent positives: dizziness, lightheadedness, numbness, weakness, Pertinent negatives: abdominal pain, chest pain, headache. Severity of symptoms: At their worst the symptoms were moderate in the emergency department the symptoms are unchanged. The patient has not experienced similar symptoms in the past. The patient has not recently seen a physician. Pt reports approx 2 hours ago felt like right arm "locking up", assoc with generalized weakness and tingling, no trauma. No chest pain/sob/abd pain. Reports vomiting and diarrhea earlier. No blood in stool. . Historical: - Allergies: 11:28 Aspirin; jd3 11:28 PENICILLINS; jd3 - PMHx: 11:28 depression; Anxiety; jd3 - Immunization history:: Adult Immunizations up to date. - Social history:: Smoking status: unknown. - Family history:: not pertinent. - Hospitalizations: : No recent hospitalization is reported. ROS: 11:35 Constitutional: Negative for fever, and weight loss, Eyes: Negative for injury, pain, rn redness, and discharge, ENT: Negative for injury, pain, and discharge, Neck: Negative for injury, pain, and swelling, Cardiovascular: Negative for chest pain, palpitations, and edema, Respiratory: Negative for shortness of breath, cough, wheezing, and pleuritic chest pain, Abdomen/GI: Negative for abdominal pain, nausea, vomiting, diarrhea, and constipation, Back: Negative for injury and pain, : Negative for injury, bleeding, discharge, and swelling, MS/Extremity: + "locking up" and tingling throughout Skin: Negative for injury, rash, and discoloration, Neuro: Negative for headache, and seizure. Exam: 11:35 Constitutional: This is a well developed, well nourished patient who is awake, alert, rn hyperventilating, holding right arm in air, contracted fingers. Head/Face: Normocephalic, atraumatic. Eyes: Pupils equal round and reactive to light, extra-ocular motions intact. Lids and lashes normal. Conjunctiva and sclera are non-icteric and not injected. Cornea within normal limits. Periorbital areas with no swelling, redness, or edema. Neck: Trachea midline, no thyromegaly or masses palpated, and no cervical lymphadenopathy. Supple, full range of motion without nuchal rigidity, or vertebral point tenderness. No Meningismus. Cardiovascular: Tachycardic, regular Respiratory: + hyperventilation, able to slow breathing down a little to speak. Abdomen/GI: Soft, non-tender Skin: Warm, dry MS/ Extremity: Pulses equal, no cyanosis. Neurovascular intact. Full, normal range of motion. Equal circumference. Neuro: Awake and alert, GCS 15, oriented to person, place, time, and situation. Cranial nerves II-XII grossly intact. Motor strength 5/5 in all extremities. Sensory grossly intact. Cerebellar exam normal. Vital Signs: 11:45 BP 134 / 96; Pulse 120; Resp 26; Temp 97.6(TE); Pulse Ox 100% on R/A; Pain 8/10; jh6 13:00 BP 146 / 96; Pulse 93; Resp 17; Pulse Ox 100% ; vg1 14:21 BP 141 / 92; Pulse 94; Resp 17; Temp 97.6(TE); Pulse Ox 100% ; Pain 0/10; jh6 MDM: 11:27 Patient medically screened. rn 12:56 ED course: Pt back to baseline, improved after ativan and fluids, now smiling with rn normal neuro exam and no complaints, states feels much better. CT head neg. Significant other reports both of them having "stomach problems" last 2 days. . 14:07 Differential diagnosis: metabolic disorder, drug effects, ETOH, dehydration, viral rn syndrome. Data reviewed: vital signs, nurses notes, lab test result(s), radiologic studies, CT scan, and as a result, I will discharge patient. Counseling: I had a detailed discussion with the patient and/or guardian regarding: the historical points, exam findings, and any diagnostic results supporting the discharge/admit diagnosis, lab results, radiology results, the need for outpatient follow up, to return to the emergency department if symptoms worsen or persist or if there are any questions or concerns that arise at home. Response to treatment: the patient's symptoms have markedly improved after treatment, and as a result, I will discharge patient. Special discussion: I discussed with the patient/guardian in detail that at this point there is no indication for admission to the hospital. It is understood, however, that if the symptoms persist or worsen the patient needs to return immediately for re-evaluation. 07/19 11:30 Order name: CBC with Diff rn 07/19 11:30 Order name: Basic Metabolic Panel 07/19 11:30 Order name: Protime (+inr) rn 07/19 11:30 Order name: Ptt, Activated; Complete Time: 12:13 07/19 11:30 Order name: Urine Drug Screen; Complete Time: 13:32 rn 07/19 11:30 Order name: Urine Microscopic Only; Complete Time: 13:50 rn 07/19 11:30 Order name: Magnesium; Complete Time: 12:13 07/19 11:30 Order name: CBC with Automated Diff; Complete Time: 12:13 EDID 07/19 11:30 Order name: Basic Metabolic Panel; Complete Time: 12:13 EDID 07/19 11:30 Order name: Protime (+INR); Complete Time: 12:13 EDID 07/19 11:31 Order name: ETOH Level; Complete Time: 12:35 rn 07/19 11:34 Order name: COVID-19/FLU A+B (Document "Date of Onset" if Symptomatic); Complete Time: rn 13:50 07/19 13:10 Order name: Urine Dipstick-Ancillary; Complete Time: 13:32 EDID 07/19 13:15 Order name: Urine --Ancillary (enter results); Complete Time: 13:32 07/19 11:30 Order name: CT Head Brain wo Cont; Complete Time: 12:13 rn 07/19 11:30 Order name: IV Start; Complete Time: 11:44 rn 07/19 11:30 Order name: EKG - Nurse/Tech; Complete Time: 11:44 rn 07/19 11:30 Order name: EKG; Complete Time: 11:31 rn 07/19 11:30 Order name: Urine Dipstick-Ancillary (obtain specimen); Complete Time: 13:13 rn 07/19 11:30 Order name: Urine Test (obtain specimen); Complete Time: 13:13 rn 07/19 11:30 Order name: Cardiac monitoring; Complete Time: 11:44 rn 07/19 11:30 Order name: O2 Sat Monitoring; Complete Time: 11:44 rn 07/19 13:37 Order name: Urine Culture EDMS Administered Medications: 11:43 Drug: Ativan (LORazepam) 0.5 mg Route: IVP; Site: right antecubital; [facility] 13:12 Follow up: Response: No adverse reaction; Anxiety decreased vg1 11:44 Drug: NS 0.9% 1000 ml Route: IV; Rate: 1000 ml; Site: right upper arm; [facility] 14:44 Follow up: IV Status: Completed infusion; IV Intake: 1000ml vg1 Disposition Summary: 07/19/21 14:08 Discharge Ordered Location: Home rn Problem: new rn Symptoms: have improved rn Condition: Stable rn Diagnosis - Hyperventilation rn - Dehydration rn - UTI/ Urinary tract infection, site not specified rn Followup: rn - With: Private Physician - When: As needed - Reason: Recheck today's complaints, Re-evaluation by your physician Discharge Instructions: - Discharge Summary Sheet rn - Dehydration, Adult rn - Urinary Tract Infection, Adult rn Forms: - Medication Reconciliation Form rn - Thank You Letter rn - Antibiotic 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
--- NOTE | 2021-07-19 14:09 | ER ---
Nurse's Notes [facility] Name: Shira Muse Age: 31 yrs Sex: Female : 1990 Arrival Date: 07/19/2021 Time: 11:23 Bed 4 Private MD: Diagnosis: Hyperventilation;Dehydration;UTI/ Urinary tract infection, site not specified Presentation: 07/19 11:26 Chief complaint: Spouse and/or significant other states: "I don't know what's wrong. jd3 maybe a stroke, but her right arm keeps locking up and she keeps passing out.". Coronavirus screen: At this time, the client does not indicate any symptoms associated with coronavirus-19. Ebola Screen: No symptoms or risks identified at this time. Initial Sepsis Screen: Does the patient meet any 2 criteria? No. Patient's initial sepsis screen is negative. Does the patient have a suspected source of infection? No. Patient's initial sepsis screen is negative. Risk Assessment: Do you want to hurt yourself or someone else? Patient reports no desire to harm self or others. Onset of symptoms was July 19, 2021 at 09:27. 11:26 Method Of Arrival: Wheelchair jd3 11:26 Acuity: GAVI 2 jd3 Historical: - Allergies: 11:28 Aspirin; jd3 11:28 PENICILLINS; jd3 - PMHx: 11:28 depression; Anxiety; jd3 - Immunization history:: Adult Immunizations up to date. - Social history:: Smoking status: unknown. - Family history:: not pertinent. - Hospitalizations: : No recent hospitalization is reported. Screenin:49 Abuse screen: Denies threats or abuse. Nutritional screening: No deficits noted. vg1 Tuberculosis screening: No symptoms or risk factors identified. Fall Risk No fall in past 12 months (0 pts). No secondary diagnosis (0 pts). IV access (20 points). Ambulatory Aid- None/Bed Rest/Nurse Assist (0 pts). Gait- Normal/Bed Rest/Wheelchair (0 pts) Mental Status- Oriented to own ability (0 pts). Total Villagran Fall Scale indicates No Risk (0-24 pts). Assessment: 11:25 General: Appears distressed, uncomfortable, Behavior is cooperative, agitated, anxious. jh6 Pain: Complains of pain in generalized hands and feet Pain currently is 8 out of 10 on a pain scale. Quality of pain is described as crampy, shooting, Pain began 3 hours ago. Is intermittent, Noted to be agitated, anxious, tearful. 11:25 Neuro: Level of Consciousness is awake, Oriented to person, place, time, Gait is jh6 unsteady, Speech is normal, Facial symmetry appears normal, Pupils are PERRLA, Intact. Cardiovascular: Heart tones Bruits absent Capillary refill < 3 seconds Pulses are all present. Rhythm is sinus tachycardia Chest pain is denied. 12:35 Reassessment: Patient appears in no apparent distress at this time. Patient and/or vg1 family updated on plan of care and expected duration. Pain level reassessed. Patient is alert, oriented x 3, equal unlabored respirations, skin warm/dry/pink. Patient denies pain at this time. Patient states feeling better. 13:30 Reassessment: Patient and/or family updated on plan of care and expected duration. Pain jh6 level reassessed. Patient is alert, oriented x 3, equal unlabored respirations, skin warm/dry/pink. Patient denies pain at this time. Patient states feeling better. Patient states symptoms have improved. 13:30 General: Appears in no apparent distress. comfortable, Behavior is calm, cooperative. jh6 Pain: Denies pain. 14:20 Reassessment: No changes from previously documented assessment. verbal understanding of jh6 D/C instructions and meds as well as results from all tests completed today. Vital Signs: 11:45 BP 134 / 96; Pulse 120; Resp 26; Temp 97.6(TE); Pulse Ox 100% on R/A; Pain 8/10; jh6 13:00 BP 146 / 96; Pulse 93; Resp 17; Pulse Ox 100% ; vg1 14:21 BP 141 / 92; Pulse 94; Resp 17; Temp 97.6(TE); Pulse Ox 100% ; Pain 0/10; jh6 ED Course: 11:23 Patient arrived in ED. jj6 11:27 Dennis Shields MD is Attending Physician. rn 11:28 Triage completed. jd3 11:28 Arm band placed on. jd3 11:33 Tamera Redd, RN is Primary Nurse. vg1 11:39 Initial lab(s) drawn, by me, sent to lab. Inserted saline lock: 22 gauge in right 1 antecubital area, using aseptic technique. Blood collected. 11:[address] [facility] emergency room 11:49 Patient has correct armband on for positive identification. Bed in low position. Call [facility] ([place], [place]) light in reach. Side rails up X 1. Adult w/ patient. campus monitor on. Pulse ox on. NIBP on. 11:55 CT Head Brain wo Cont In Process Unspecified. EDOH 12:03 COVID swab sent to lab. Flu and/or RSV swab sent to lab. vg1 14:20 No provider procedures requiring assistance completed. [facility] emergency room 14:21 IV discontinued, intact, bleeding controlled, No redness/swelling at site. Pressure [facility] emergency room dressing applied. Administered Medications: 11:43 Drug: Ativan (LORazepam) 0.5 mg Route: IVP; Site: right antecubital; [facility] room 13:12 Follow up: Response: No adverse reaction; Anxiety decreased [facility] ([place], [place]) 11:44 Drug: NS 0.9% 1000 ml Route: IV; Rate: 1000 ml; Site: right upper arm; [facility] emergency room 14:44 Follow up: IV Status: Completed infusion; IV Intake: 1000ml [facility] ([place], [place]) Intake: 14:44 IV: 1000ml; Total: 1000ml. [facility] ([place], [place]) Outcome: 14:08 Discharge ordered by . rn 14:21 Discharged to home ambulatory. [facility] emergency room 14:21 Condition: improved 14:21 Discharge instructions given to patient, family, Instructed on discharge instructions, follow up and referral plans. Demonstrated understanding of instructions, follow-up care, medications, Prescriptions given X 2. 14:35 Patient left the ED. [facility] emergency room Signatures: Dispatcher [employer] EDOH Dennis Shields MD MD rn Davies, Jonathon RN RN Tamera Arriaga, RN RN vg1 Ana Cortes jj6 Ana Espinoza RN RN jh6
[2021-07-19 15:00] VITALS: TEMP 97.6; O2SAT 100
[2021-07-19 15:02] VITALS: BP 141/92
--- NOTE | 2021-07-20 09:24 | EKG ---
Test Date: 2021-07-19 Test Time: 11:44:32 [place] Line: BRYNN MEASUREMENT RESULTS: Intervals: Rate: 102 AK: 118 QRSD: 74 QT: 356 QTc: 463 [place]: P: 65 AK: 118 QRS: 65 T: 30 INTERPRETIVE STATEMENTS: Sinus tachycardia Right atrial enlargement Nonspecific T wave abnormality Abnormal ECG No previous ECG available for comparison Electronically Signed On 07-20-21 09:23:05 [employer] by Fredo Nettles
== END 2021-07-19 14:35 | disposition home or self-care (01) ==
LOC: ER 11:19
DX: R06.4 Hyperventilation (principal); E86.0 Dehydration; N39.0 Urinary tract infection, site not specified; Z20.822 Contact with and (suspected) exposure to COVID-19; Z88.0 Allergy status to penicillin; Z88.6 Allergy status to analgesic agent
CPT/HCPCS: 0240U; 36415; 70450; 80048; 80307; 80320; 81003; 81015; 81025; 83735; 85025; 85610; 85730; 87086; 87088; 93005; 96361; 96374; 99285; J7030

== ENCOUNTER 2022-01-20 01:25 | Emergency (ER) | payer BC, SELFPAY ==
--- OUTSIDE RECORDS SUMMARY | 2022-01-20 01:28 | XMS REPORT | Continuity of Care Document ---
:1990 Author Organization [facility] t Address [address] [place] [address] Care Team Providers Name Role Phone PCP, PATIENT DOES NOT HAVE A Primary Care Physician Unavaila ble RADIOLOGY Attending Clinician Unavailable ЕКАТЕРИНА LAM Attending Clinician Unavailable 2, [facility] Attending Clinician Unavailable Екатерина Lam MD Attending Clinician Doctor Unassigned, [place] Attending Clinician Unavailable Payers Payer Name Policy Type Policy Number Effective Date Expiration Date S toy [facility] [id number] 2021 00:00:00 Problems Condition Condition Condition Status Onset Resolution Last Treating Co mments Source Name Details Category Date Date Treatment Clinician Date No known No known Disease Unive rs active active ity of problems problems [facility] Allergies, Adverse Reactions, Alerts Allergy Allergy Status Severity Reaction(s) Onset Inactive Treating Comm ents Source Name Type Date Date Clinician Penicill Propensi Active ins ty to 2-20 adverse 00:00: reaction 00 to drug ASPIRIN DRUG Active Anaphylaxis Univ ers INGREDI 05-17 ity of 00:00: [place] 00 [facility] PENICILL DRUG Active Anaphylaxis Uni vers IN INGREDI 05-17 ity of 00:00: [place] 00 [facility] Aspirin Propensi Active Anaphylaxis Un lorrie ty to 05-17 ity of adverse 00:00: [place] reaction 00 Medical s Branch Penicill Propensi Active Anaphylaxis U nivers in ty to 05-17 ity of adverse 00:00: [place] reaction 00 Medical s Branch Social History Social Habit Start Date Stop Date Quantity Comments Source History of tobacco Cigarette Smoker University of use [facility] ASSERTION [facility] Exposure to 2021-10-20 2021-10-30 Not sure [facility]-CoV-2 (event) 00:00:00 14:29:00 [facility] Cigarettes smoked 2021-10-14 2021-10-14 Univers ity of current (pack per 00:00:00 00:00:00 [facility] [place] ) - Reported Branch Tobacco use and 2021-10-14 2021-10-14 Smokeless Universit y of exposure 00:00:00 00:00:00 tobacco non-user [facility] dical [place] Alcohol intake 2021-10-14 2021-10-14 Ex-drinker [facility] 00:00:00 00:00:00 (finding) [facility] Sex Ass[birth year] At [birth year] Universit y of 00:00:00 00:00:00 [facility] Smoking Status Start Date Stop Date Source Smokes tobacco daily 2021-10-14 00:00:00 Univers ity of [facility] Medications Ordered Filled Start Stop Current Ordering Indication Dosage Frequency Signature Comments Components Source Medication Medication Date Date Medication? Clinician (SIG) Name Name Wellbutrin No 1mg XL 300 mg 11-21 24 hr 00:00: tablet, 00 extended release buspirone 2021- No 1mg 7.5 mg 7-08 tablet 00:00: 00 busPIRone 2021-0 Yes 7.5mg Take 7.5 Uni vers 7.5 mg 5-31 mg by ity of tablet 14:39: mouth [address] [place] [address] (three) Medical times [place] daily. busPIRone 2021-0 Yes 7.5mg Take 7.5 Uni vers 7.5 mg 5-31 mg by ity of tablet 14:39: mouth 3 [place] [address] (three) Medical times [place] daily. busPIRone 2021-0 Yes 7.5mg Take 7.5 Uni vers 7.5 mg 5-31 mg by ity of tablet 14:39: mouth 3 [place] [address] (three) Medical times [place] daily. busPIRone 2021-0 Yes 7.5mg Take 7.5 Uni vers 7.5 mg 5-31 mg by ity of tablet 14:39: mouth 3 [place] [address] (three) Medical times [place] daily. busPIRone 2021-0 Yes 7.5mg Take 7.5 Uni vers 7.5 mg 5-31 mg by ity of tablet 14:39: mouth 3 [place] 54 (three) Medical times [place] daily. amLODIPine 2021-0 Yes Univers 5 mg tablet 5-24 ity of 00:00: [place] [facility] amLODIPine 2021-0 Yes Univers 5 mg tablet 5-24 ity of 00:00: [place] [facility] amLODIPine 2021-0 Yes Univers 5 mg tablet 5-24 ity of 00:00: [place] [facility] amLODIPine 2021-0 Yes Univers 5 mg tablet 5-24 ity of 00:00: [place] [facility] amLODIPine 2021-0 Yes Univers 5 mg tablet 5-24 ity of 00:00: [address] Lamictal 2021-0 No 1mg 100 mg 5-18 tablet 00:00: 00 traZODone 2021-0 Yes Univers 100 mg 5-16 ity of tablet 00:00: [place] [facility] buPROPion 2021-0 Yes Univers XL 300 mg 5-16 ity of 24 hr 00:00: [place] tablet [facility] lamoTRIgine 2021-0 Yes Univer s 100 mg 5-16 ity of tablet 00:00: [place] [facility] traZODone 2021-0 Yes Univers 100 mg 5-16 ity of tablet 00:00: [place] [facility] buPROPion 2021-0 Yes Univers XL 300 mg 5-16 ity of 24 hr 00:00: [place] tablet [facility] lamoTRIgine 2021-0 Yes Univer s 100 mg 5-16 ity of tablet 00:00: [place] [facility] traZODone 2021-0 Yes Univers 100 mg 5-16 ity of tablet 00:00: [address] buPROPion 2021-0 Yes Univers XL 300 mg 5-16 ity of 24 hr 00:00: [place] tablet [facility] lamoTRIgine 2021-0 Yes Univer s 100 mg 5-16 ity of tablet 00:00: [place] [facility] traZODone 2021-0 Yes Univers 100 mg 5-16 ity of tablet 00:00: [address] buPROPion 2-0 Yes Univers XL 300 mg 5-16 ity of 24 hr 00:00: [place] tablet 00 [facility] lamoTRIgine 2-0 Yes Univer s 100 mg 5-16 ity of tablet 00:00: [place] [facility] traZODone 2-0 Yes Univers 100 mg 5-16 ity of tablet 00:00: [address] buPROPion 2-0 Yes Univers XL 300 mg 5-16 ity of 24 hr 00:00: [place] tablet 00 [facility] lamoTRIgine 2-0 Yes Univer s 100 mg 5-16 ity of tablet 00:00: [address] Wellbutrin 2-0 No 1mg XL 300 mg 5-15 24 hr 00:00: tablet, 00 extended release naltrexone 2-0 No 1mg 50 mg 5-15 tablet 00:00: 00 buspirone 2-0 No 1mg 7.5 mg 5-15 tablet 00:00: 00 trazodone 2-0 No 1mg 100 mg 5-15 tablet 00:00: 00 Lamictal 2-0 No 1mg 100 mg 5-15 tablet 00:00: 00 naltrexone 2022-0 No 1mg 50 mg 4-30 tablet 00:00: 00 Wellbutrin 2022-0 No 1mg XL 300 mg 4-30 24 hr 00:00: tablet, 00 extended release Lamictal 25 2-0 No 2mg mg tablet 4-30 00:00: 00 buspirone 2022-0 No 1mg 7.5 mg 4-30 tablet 00:00: 00 trazodone 2022-0 No 1mg 100 mg 4-30 tablet 00:00: 00 amlodipine 2022-0 No 1mg 5 mg tablet 4-12 00:00: 00 Wellbutrin 2022-0 No 1mg XL 300 mg 3-27 24 hr 00:00: tablet, 00 extended release naltrexone 2022-0 No 1mg 50 mg 3-27 tablet 00:00: 00 Dose 2022-0 No Unknown 3-27 00:00: 00 Lamictal 25 2022-0 No 2mg mg tablet 3-27 00:00: 00 buspirone 2022-0 No 1mg 7.5 mg 3-27 tablet 00:00: 00 trazodone 2022-0 No 1mg 100 mg 3-27 tablet 00:00: 00 Dose 2022-0 No Unknown 3-14 00:00: 00 Dose 2022-0 No Unknown 3-14 00:00: 00 Dose 2022-0 No Unknown 3-13 00:00: 00 Dose 2022-0 No Unknown 3-13 00:00: 00 Lamictal 25 2-0 No 1mg mg tablet 3-13 00:00: 00 naltrexone 2022-0 No 1mg 50 mg 3-13 tablet 00:00: 00 Wellbutrin 2022-0 No 1mg XL 300 mg 3-13 24 hr 00:00: tablet, 00 extended release buspirone 2-0 No 1mg 7.5 mg 3-13 tablet 00:00: 00 trazodone 2022-0 No 1mg 100 mg 3-13 tablet 00:00: 00 amlodipine 2022-0 No 1mg 5 mg tablet 3-09 00:00: 00 Dose 2022-0 No Unknown 3-09 00:00: 00 Dose 2022-0 No Unknown 3-09 00:00: 00 Dose 2022-0 No Unknown 3-09 00:00: 00 Dose 2022-0 No Unknown 3-09 00:00: 00 Dose 2022-0 No Unknown 3-09 00:00: 00 Dose 2022-0 No Unknown 3-09 00:00: 00 Dose 2022-0 No Unknown 3-09 00:00: 00 Dose 2022-0 No Unknown 3-09 00:00: 00 Dose 2022-0 No Unknown 3-09 00:00: 00 Dose 2022-0 No Unknown 3-09 00:00: 00 Dose 2022-0 No Unknown 3-09 00:00: 00 Dose 2022-0 No Unknown 3-09 00:00: 00 Dose 2022-0 No Unknown 3-08 00:00: 00 Dose 2022-0 No Unknown 3-08 00:00: 00 Dose 2022-0 No Unknown 3-08 00:00: 00 Dose 2022-0 No Unknown 3-08 00:00: 00 Dose 2022-0 No Unknown 3-08 00:00: 00 Dose 2022-0 No Unknown 3-08 00:00: 00 Dose 2022-0 No Unknown 3-08 00:00: 00 Dose 2022-0 No Unknown 3-08 00:00: 00 Dose 2022-0 No Unknown 3-08 00:00: 00 Lexapro 10 2-0 No 15mg mg tablet 1-13 00:00: 00 Wellbutrin 2-0 No 1mg XL 300 mg 1-13 24 hr 00:00: tablet, 00 extended release buspirone 2-0 No 1mg 7.5 mg 1-13 tablet 00:00: 00 trazodone 2-0 No 1mg 100 mg 1-13 tablet 00:00: 00 Lexapro 10 2-0 No 1mg mg tablet 1-07 00:00: 00 Wellbutrin 2-0 No 1mg XL 300 mg 1-07 24 hr 00:00: tablet, 00 extended release buspirone 2-0 No 1mg 7.5 mg 1-07 tablet 00:00: 00 trazodone 2-0 No 1mg 100 mg 1-07 tablet 00:00: 00 Wellbutrin 2020-1 No 1mg XL 300 mg 1-12 24 hr 00:00: tablet, 00 extended release Lexapro 10 2020-1 No 1mg mg tablet 1-12 00:00: 00 buspirone 1-1 No 1mg 7.5 mg 1-12 tablet 00:00: 00 trazodone 1-1 No 1mg 100 mg 1-12 tablet 00:00: 00 Wellbutrin 1-1 No 1mg XL 300 mg 0-15 24 hr 00:00: tablet, 00 extended release buspirone 2020-1 No 1mg 7.5 mg 0-15 tablet 00:00: 00 trazodone 1-1 No 1mg 100 mg 0-15 tablet 00:00: 00 Wellbutrin 1-0 No 1mg XL 150 mg 8-30 24 hr 00:00: tablet, 00 extended release buspirone 1-0 No 1mg 7.5 mg 8-30 tablet 00:00: 00 trazodone 2021-0 No 1mg 100 mg 8-30 tablet 00:00: 00 Wellbutrin 1-0 No 1mg XL 150 mg 8-06 24 hr 00:00: tablet, 00 extended release buspirone 1-0 No 1mg 7.5 mg 8-06 tablet 00:00: 00 trazodone 2021-0 No 1mg 100 mg 8-06 tablet 00:00: 00 sertraline 2021-0 No 15mg 100 mg 7-09 tablet 00:00: 00 buspirone 2021-0 No 1mg 7.5 mg 7-09 tablet 00:00: 00 naltrexone 2021-0 No 1mg 50 mg 7-09 tablet 00:00: 00 sertraline 2021-0 No 15mg 100 mg 6-30 tablet 00:00: 00 buspirone 2021-0 No 1mg 7.5 mg 6-30 tablet 00:00: 00 naltrexone 2021-0 No 1mg 50 mg 6-30 tablet 00:00: 00 amlodipine 2021-0 No 1mg 5 mg tablet 6- 00:00: 00 amlodipine 2021-0 No 1mg 5 mg tablet 624 00:00: 00 Imitrex 50 1-0 No 1mg mg tablet 6-24 00:00: 00 sertraline 2021-0 No 15mg 100 mg 6-11 tablet 00:00: 00 buspirone 2021-0 No 1mg 7.5 mg 6-11 tablet 00:00: 00 naltrexone 2021-0 No 1mg 50 mg 6-11 tablet 00:00: 00 trazodone 2021-0 No 1mg 100 mg 6-11 tablet 00:00: 00 gabapentin 2021-0 No 1mg 300 mg 6-11 capsule 00:00: 00 amlodipine 2021-0 No 1mg 5 mg tablet 5-28 00:00: 00 Imitrex 50 1-0 No 1mg mg tablet 5-28 00:00: 00 sertraline 2021-0 No 1mg 100 mg 4-30 tablet 00:00: 00 buspirone 2021-0 No 1mg 7.5 mg 4-30 tablet 00:00: 00 naltrexone 2021-0 No 1mg 50 mg 4-30 tablet 00:00: 00 trazodone 2021-0 No 1mg 150 mg 4-30 tablet 00:00: 00 gabapentin 2021-0 No 1mg 300 mg 4-30 capsule 00:00: 00 amlodipine 2021-0 No 1mg 5 mg tablet 4-22 00:00: 00 sertraline 2021-0 No 1mg 100 mg 4-15 tablet 00:00: 00 naltrexone 2021-0 No 1mg 50 mg 4-15 tablet 00:00: 00 trazodone 2021-0 No 1mg 100 mg 4-15 tablet 00:00: 00 buspirone 2021-0 No 1mg 7.5 mg 4-15 tablet 00:00: 00 gabapentin 2021-0 No 1mg 300 mg 4-15 capsule 00:00: 00 gabapentin 2021-0 No 1mg 300 mg 3-31 capsule 00:00: 00 amlodipine 2021-0 No 1mg 5 mg tablet 3-26 00:00: 00 sertraline 2021-0 No 1mg 100 mg 3-17 tablet 00:00: 00 naltrexone 2021-0 No 1mg 50 mg 3-17 tablet 00:00: 00 trazodone 2021-0 No 1mg 100 mg 3-17 tablet 00:00: 00 buspirone 2021-0 No 1mg 7.5 mg 3-17 tablet 00:00: 00 gabapentin 2021-0 No 1mg 300 mg 3-08 capsule 00:00: 00 sertraline 2021-0 No 1mg 100 mg 3-03 tablet 00:00: 00 trazodone 2021-0 No 1mg 100 mg 3-03 tablet 00:00: 00 naltrexone 2021-0 No 1mg 50 mg 3-03 tablet 00:00: 00 gabapentin 2021-0 No 1mg 300 mg 3-03 capsule 00:00: 00 Flagyl 500 2021-0 No 1mg mg tablet 2-26 00:00: 00 Diflucan 2021-0 No 1mg 150 mg 2-26 tablet 00:00: 00 sertraline 2021-0 No 1mg 50 mg 2-25 tablet 00:00: 00 gabapentin 2021-0 No 1mg 300 mg 2-25 capsule 00:00: 00 trazodone 2021-0 No 1mg 100 mg 2-25 tablet 00:00: 00 amlodipine 2021-0 No 1mg 5 mg tablet 2-25 00:00: 00 trazodone 2021-0 No 1mg 100 mg 2-14 tablet 00:00: 00 sertraline 2021-0 No 1mg 50 mg 2-14 tablet 00:00: 00 amlodipine 2021-0 No 1mg 5 mg tablet 2-14 00:00: 00 gabapentin No 1mg 300 mg 2-14 capsule 00:00: 00 Vital Signs Vital Name Observation Time Observation Value Comments Source Systolic blood 2021-11-14 19:28:00 123 mm[Hg] Univer sity of [facility] Diastolic blood 2021-11-14 19:28:00 82 mm[Hg] [facility] rate 2021-11-14 19:28:00 70 /min [facility] Body temperature 2021-11-14 19:28:00 36.72 [facility] 2021-11-14 19:28:00 18 /min [facility] Body height 2021-11-14 19:28:00 154.9 cm [facility] Body weight 2021-11-14 19:28:00 64.411 kg [facility] BMI 2021-11-14 19:28:00 26.83 kg/m2 [facility] BP Systolic 2021-08-07 16:26:00 116 mm[Hg] BP Diastolic 2021-08-07 16:26:00 90 mm[Hg] Weight Measured 2021-08-07 16:26:00 142.60 pounds Height Measured 2021-08-07 16:26:00 62.00 inches Body Temperature 2021-08-07 16:26:00 99.50 degrees Heart Rate 2021-08-07 16:26:00 90.00 /min Respiratory Rate 2021-08-07 16:26:00 16.00 /min BP Systolic 2021-08-05 08:29:00 123 mm[Hg] BP Diastolic 2021-08-05 08:29:00 80 mm[Hg] Weight Measured 2021-08-05 08:29:00 144.00 pounds Height Measured 2021-08-05 08:29:00 62.00 inches Body Temperature 2021-08-05 08:29:00 98.40 degrees Heart Rate 2021-08-05 08:29:00 80.00 /min Respiratory Rate 2021-08-05 08:29:00 16.00 /min BP Systolic 2021-07-28 15:01:00 130 mm[Hg] BP Diastolic 2021-07-28 15:01:00 88 mm[Hg] Weight Measured 2021-07-28 15:01:00 143.40 pounds Height Measured 2021-07-28 15:01:00 62.00 inches Body Temperature 2021-07-28 15:01:00 98.40 degrees Heart Rate 2021-07-28 15:01:00 90.00 /min Respiratory Rate 2021-07-28 15:01:00 16.00 /min BP Systolic 2020-10-11 15:23:00 120 mm[Hg] BP Diastolic 2020-10-11 15:23:00 80 mm[Hg] Weight Measured 2020-10-11 15:23:00 143.60 pounds Height Measured 2020-10-11 15:23:00 62.00 inches Body Temperature 2020-10-11 15:23:00 98.40 degrees Heart Rate 2020-10-11 15:23:00 87.00 /min Respiratory Rate 2020-10-11 15:23:00 16.00 /min BP Systolic 2020-07-17 13:58:00 120 mm[Hg] BP Diastolic 2020-07-17 13:58:00 77 mm[Hg] Weight Measured 2020-07-17 13:58:00 133.60 pounds Height Measured 2020-07-17 13:58:00 62.00 inches Body Temperature 2020-07-17 13:58:00 98.50 degrees Heart Rate 2020-07-17 13:58:00 82.00 /min Respiratory Rate 2020-07-17 13:58:00 17.00 /min BP Systolic 2020-07-08 14:32:00 121 mm[Hg] BP Diastolic 2020-07-08 14:32:00 86 mm[Hg] Weight Measured 2020-07-08 14:32:00 133.00 pounds Height Measured 2020-07-08 14:32:00 62.00 inches Body Temperature 2020-07-08 14:32:00 98.20 degrees Heart Rate 2020-07-08 14:32:00 75.00 /min Respiratory Rate 2020-07-08 14:32:00 17.00 /min Procedures Procedure Date / Time Performed Performing Clinician [facility] 2021-10-30 05:01:00 Doctor Unassigned, No Univer ad[facility] of [place] ULTRASOUND Name Medical Branch Plan of Care Planned Activity Planned Date Details Comments Source Goal Plan of Care Note [code = 96099-2] Goal Plan of Care Note [code = 04939-6] Goal Plan of Care Note [code = 32650-7] Goal Plan of Care Note [code = 33070-2] Goal Plan of Care Note [code = 14391-0] Goal Plan of Care Note [code = 89548-9] Goal Plan of Care Note [code = 40003-9] Goal Plan of Care Note [code = 54477-5] Goal Plan of Care Note [code = 84588-4] Goal Plan of Care Note [code = 24690-6] Goal Plan of Care Note [code = 84195-4] Goal Plan of Care Note [code = 60831-0] Goal Plan of Care Note [code = 01877-5] Goal Plan of Care Note [code = 18819-5] Goal Plan of Care Note [code = 30303-0] Goal Plan of Care Note [code = 94219-2] Goal Plan of Care Note [code = 77241-6] Goal Plan of Care Note [code = 81298-6] Goal Plan of Care Note [code = 28200-0] Goal Plan of Care Note [code = 62720-2] Goal Plan of Care Note [code = 59650-1] Goal Plan of Care Note [code = 20920-6] Goal Plan of Care Note [code = 51019-6] Goal Plan of Care Note [code = 55371-7] Goal Plan of Care Note [code = 12384-8] Goal Plan of Care Note [code = 89361-2] Goal Plan of Care Note [code = 91233-3] Goal Plan of Care Note [code = 40339-1] Encounters Start End Encounter Admission Attending Care Care Encounter Source Date/Time Date/Time Type Type Clinicians Facility Department ID 2021-12-23 2021-12-23 Outpatient R RADIOLOGY [facility] [id number] Univers 00:00:00 00:00:00 [id number] ity [facility] 2021-12-23 2021-12-23 Outpatient R RADIOLOGY [facility] [id number] Univers [facility] 2021-12-10 Outpatient R ADUM, [facility] [id number] Univers 15:30:00 15:30:00 ЕКАТЕРИНА [id number] [facility] 2021-12-10 2021-12-10 Outpatient R ADUM, [facility] [id number] Univers 15:30:00 15:30:00 ЕКАТЕРИНА [facility] 2021-12-08 2021-12-08 Outpatient [id number] 00:00:00 00:00:00 Visit [id number] 2021-11-21 2021-11-21 Education Director 2, Adc Lab [facility] [id number] Univers 16:00:00 16:15:00 Visit AdЕкатерина vega [id number] ity [facility] [id number] [phone] In dical NAL 353 [facility] 2021-11-21 2021-11-21 Outpatient R AD, [facility] [id number] Univers 16:00:00 16:00:00 [facility] 2021-11-19 2021-11-19 Patient Doctor KERRY [id number] Univers 00:00:00 00:00:00 Secure Msg Unassigned, MAUREEN [id number] [facility] [id number] Melec[place] as [phone] [address] 2021-11-14 2021-11-14 Office Adum, [facility] [id number] Univers 13:00:00 15:07:07 Visit Екатерина PEREZ [id number] [id number] [phone] In dical NAL 134 [facility] 2021-11-14 2021-11-14 Outpatient R ADUM, [facility] [id number] Univers 13:00:00 15:07:07 ЕКАТЕРИНА ity of [facility] 2021-10-30 2021-10-30 Orders Doctor KERRY [id number] Univers 00:00:00 00:00:00 Only Unassigned, MAUREEN [id number] ity of [place] [facility] [id number] Melec[place] as [phone] [address] Results Test Description Test Time Test Comments Results Result Comments Source CBC W/AUTO DIFF 2020-07-20 00:00:00 Test Item Value Reference Range Interpretation Comme nts WBC (test code = 1001) 8.5 K/UL RBC (test code = 1002) 5.09 M/UL HEMOGLOBIN (test code = 1003) 14.2 G/DL HEMATOCRIT (test code = 1004) 42.7 % MCV (test code = 1005) 83.9 fL MCH (test code = 1006) 27.9 PG MCHC (test code = 1007) 33.3 G/DL RDW (test code = 1038) 13.8 % NEUTROPHILS (test code = 1008) 61.5 % LYMPHOCYTES (test code = 1010) 25.4 % MONOCYTES (test code = 1011) 7.8 % EOSINOPHILS (test code = 1012) 4.5 % BASOPHILS (test code = 1013) 0.8 % PLATELET COUNT (test code = 1015) 327 K/UL CBC W/AUTO [id number] 00:00:00 Test Item Value Reference Range Interpretation Comments WBC (test code = 1001) 8.5 K/UL RBC (test code = 1002) 5.09 M/UL HEMOGLOBIN (test code = 1003) 14.2 G/DL HEMATOCRIT (test code = 1004) 42.7 % MCV (test code = 1005) 83.9 fL MCH (test code = 1006) 27.9 PG MCHC (test code = 1007) 33.3 G/DL RDW (test code = 1038) 13.8 % NEUTROPHILS (test code = 1008) 61.5 % LYMPHOCYTES (test code = 1010) 25.4 % MONOCYTES (test code = 1011) 7.8 % EOSINOPHILS (test code = 1012) 4.5 % BASOPHILS (test code = 1013) 0.8 % PLATELET COUNT (test code = 1015) 327 K/UL COMPREHENSIVE METABOLIC [id number] 00:00:00 Test Item Value Reference Range Interpretation Comments GLUCOSE (test code = 2217) 93 MG/DL BUN (test code = 2208) 8 MG/DL CREATININE (test code = 2214) 0.64 MG/DL eGFR AMER. (test code 141 ML/MIN/1.73 = 68263) eGFR NON- AMER. (test 121 ML/MIN/1.73 code = 49921) CALC BUN/CREAT (test code = 13 RATIO 2235) SODIUM (test code = 2231) 143 MEQ/L POTASSIUM (test code = 2228) 4.0 MEQ/L CHLORIDE (test code = 2215) 106 MEQ/L CARBON DIOXIDE (test code = 26 MEQ/L 2205) CALCIUM (test code = 2209) 9.9 MG/DL PROTEIN, TOTAL (test code = 7.3 G/DL 2228) ALBUMIN (test code = 2201) 4.5 G/DL CALC GLOBULIN (test code = 2.8 G/DL 224) CALC A/G RATIO (test code = 1.6 RATIO 2234) BILIRUBIN, TOTAL (test code = 0.3 MG/DL 2206) ALKALINE PHOSPHATASE (test 76 U/L code = 2204) AST (test code = 2218) 15 U/L ALT (test code = 2219) 11 U/L [id number] 00:00:00 Test Item Value Reference Range Interpretation Comments TSH, THIRD GENERATION (test code 1.120 UIU/ML = 2821) [id number] 00:00:00 Test Item Value Reference Range Interpretation Comments TSH, THIRD GENERATION (test code 1.120 UIU/ML = 2821) LIPID [id number] 00:00:00 Test Item Value Reference Range Interpretation Comments CHOLESTEROL (test code = 2210) 158 MG/DL TRIGLYCERIDES (test code = 2232) 84 MG/DL HDL CHOLESTEROL (test code = 2220) 50 MG/DL CALC LDL CHOL (test code = 2237) 91 MG/DL RISK RATIO LDL/HDL (test code = 1.82 RATIO 2238) PAP TEST, THINPREP, [id number] 00:00:00 Test Item Value Reference Range Interpretation Comments SOURCE: (test code = 8001) Cervical/Endocervic al SLIDES: (test code = 8011) 1 LMP: (test code = 8021) 06/23/20 SPECIMEN ADEQUACY: (test (NOTE) code = 94821) INTERPRETATION: (test code LSIL/EPITH. 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 OPERATOR: (test Alexander Amaya code = 8101) PATHOLOGIST INTERPRETATION Venkat Jackson BY: (test code = 8122) MThomas LOCATION: (test code = (NOTE) 40508) CPT: (test code = 8140) (NOTE) HPV HIGH RISK WITH GENOTYPE, [id number] 00:00:00 Test Item Value Reference Range Interpretation Comments HPV HIGH RISK INTERP (test POSITIVE code = 85463) HPV 16 (test code = 30811) NEGATIVE HPV 18 (test code = 20523) NEGATIVE HPV, HR, OTHER GENOTYPES TEST NOT PERFORMED (test code = 54177) VAGINAL PATHOGENS DNA [id number] 00:00:00 Test Item Value Reference Range Interpretation Comments GLORIA SPECIES (test code = 33513) POSITIVE G. VAGINALIS (test code = 82188) POSITIVE T. VAGINALIS (test code = 84537) POSITIVE GC AND CHLAMYDIA AMPLIFIED, [id number] 00:00:00 Test Item Value Reference Range Interpretation Comments GONORRHEA, TMA (test code = 61195) NEGATIVE CHLAMYDIA, TMA (test code = 41616) NEGATIVE HIV AB/AG COMBO RFLX [id number] 00:00:00 Test Item Value Reference Range Interpretation Comments HIV 1/2 4TH GEN, RFLX CONF (test NON-REACTIVE code = 3514) RPR REFLEX TO [id number] 00:00:00 Test Item Value Reference Range Interpretation Comments RPR (test code = 08090) NON-REACTIVE RPR TITER (test code = 3500) NOT INDIC. TITER ACUTE HEPATITIS [id number] 00:00:00 Test Item Value Reference Range Interpretation Comments HEPATITIS A IgM (test code = NON-REACTIVE 79657) HEPATITIS B CORE IgM (test code NON-REACTIVE = 1044) HEPATITIS B SURF AG (test code = NON-REACTIVE 5979) HEPATITIS C ANTIBODY (test code NON-REACTIVE = 8280) INTERPRETATION HEPATITIS A: (NOTE) (test code = 2552) INTERPRETATION HEPATITIS B: (NOTE) (test code = 80513) INTERPRETATION HEPATITIS C: (NOTE) (test code = 99462)
[2022-01-20 01:53] LABS: Urine Blood Negative (Negative); Urine Glucose Negative (Negative); Urine Protein Negative (Negative); Urine Specific Gravity <=1.005 (1.005-1.030)
[2022-01-20 02:08] LABS: Absolute Lymphocytes (CBC) 4.3 K/uL (0.7-4.9); Hematocrit 43.3 % (36.0-45.0); Lymphocytes % 38.3 % (15.3-44.8); MPV 7.1 fL (7.6-11.3); RBC Red Blood Cell Count 5.04 M/uL (3.86-4.86)
[2022-01-20] MEDS ORDERED: NA CHLORIDE 0.9% 1,000 ML ONE (02:08)
[2022-01-20 02:11] LABS: Protime INR 0.94
[2022-01-20 02:13] LABS: Barbiturates NEGATIVE (NEGATIVE); Benzodiazepines NEGATIVE (NEGATIVE); Cocaine NEGATIVE (NEGATIVE); METHAMPHETAM NEGATIVE (NEGATIVE); Methadone NEGATIVE (NEGATIVE); Opiates NEGATIVE (NEGATIVE); Phencyclidine NEGATIVE (NEGATIVE); THC Cannibis NEGATIVE (NEGATIVE)
[2022-01-20 02:32] LABS: Urine Specific Gravity/Preg 1.005 (1.005-1.030)
[2022-01-20 02:38] LABS: SARS-CoV-2 Antigen Rapid Res Negative (Negative)
[2022-01-20 02:42] LABS: ALT/SGPT 12 U/L (12-78); AST/SGOT 10 U/L (15-37); Albumin 3.9 g/dL (3.4-5.0); Alkaline Phosphatase 85 U/L (45-117); BUN Blood Urea Nitrogen 9 mg/dL (7-18); Bicarbonate 26 mmol/L (21-32); Bilirubin Total 0.2 mg/dL (0.2-1.0); Glomerular Filtration Rate 104 ml/min (=/>90); Glucose Level 107 mg/dL (74-106); Potassium 3.4 mmol/L (3.5-5.1); Protein, Total 8.5 g/dL (6.4-8.2); Sodium Level 143 mmol/L (136-145)
[2022-01-20 02:43] LABS: Bilirubin Direct < 0.1 mg/dL (0-0.2)
--- NOTE | 2022-01-20 03:49 | EDPHYS ---
Physician Documentation [facility] Name: Shira Muse Age: 31 yrs Sex: Female : 1990 Arrival Date: 01/20/2022 Time: 01:26 Bed 18 Private MD: ED Physician Rashaun Skaggs HPI: 01/20 03:39 This 31 yrs old Female presents to ER via Wheelchair with complaints of deysi Possible Overdose. 03:39 The patient presents to the emergency department after a known overdose, that was deysi intentional. Context: Method: the patient has a confirmed or suspected ingestion, of benzodiazepines, Wellbutrin/ trazadone. Associated signs and symptoms: The patient has no apparent associated signs or symptoms. Severity of symptoms: At their worst the symptoms were mild in the emergency department the symptoms are unchanged. The patient has not experienced similar symptoms in the past. 03:45 The patient presents to the emergency department with depression, a history of a deysi suicide gesture, where the patient took pills/medications, trazadone/wellbutrin. Onset: The symptoms/episode began/occurred just prior to arrival, at 00:00. Past psychiatric history: Prior diagnosis: depression. Associated signs and symptoms: The patient has no apparent associated signs or symptoms. Historical: - Allergies: 07:28 Aspirin; jb4 07:28 PENICILLINS; jb4 - Home Meds: 07:28 amlodipine oral [Active]; Trazodone Oral [Active]; Buspirone Oral [Active]; Wellbutrin jb4 Oral [Active]; - PMHx: 07:28 Anxiety; Depression; Bipolar disorder; jb4 - Immunization history:: Adult Immunizations up to date. - Family history:: not pertinent. - Social history:: Smoking status: unknown. ROS: 03:40 Constitutional: Negative for fever, chills, and weight loss, Eyes: Negative for injury, deysi pain, redness, and discharge, ENT: Negative for injury, pain, and discharge, Neck: Negative for injury, pain, and swelling, Cardiovascular: Negative for chest pain, palpitations, and edema, Respiratory: Negative for shortness of breath, cough, wheezing, and pleuritic chest pain, Abdomen/GI: Negative for abdominal pain, nausea, vomiting, diarrhea, and constipation, Back: Negative for injury and pain, : Negative for injury, bleeding, discharge, and swelling, MS/Extremity: Negative for injury and deformity, Skin: Negative for injury, rash, and discoloration, Neuro: Negative for headache, weakness, numbness, tingling, and seizure, Allergy/Immunology: Negative for hives, rash, and allergies, Endocrine: Negative for neck swelling, polydipsia, polyuria, polyphagia, and marked weight changes. 03:40 Psych: Positive for anxiety, depression, suicide gesture. Exam: 03:40 Constitutional: This is a well developed, well nourished patient who is awake, alert, deysi and in no acute distress. Head/Face: Normocephalic, atraumatic. Eyes: Pupils equal round and reactive to light, extra-ocular motions intact. Lids and lashes normal. Conjunctiva and sclera are non-icteric and not injected. Cornea within normal limits. Periorbital areas with no swelling, redness, or edema. ENT: Nares patent. No nasal discharge, no septal abnormalities noted. Tympanic membranes are normal and external auditory canals are clear. Oropharynx with no redness, swelling, or masses, exudates, or evidence of obstruction, uvula midline. Mucous membranes moist. Neck: Trachea midline, no thyromegaly or masses palpated, and no cervical lymphadenopathy. Supple, full range of motion without nuchal rigidity, or vertebral point tenderness. No Meningismus. Chest/axilla: Normal chest wall appearance and motion. Nontender with no deformity. No lesions are appreciated. Cardiovascular: Regular rate and rhythm with a normal S1 and S2. No gallops, murmurs, or rubs. Normal PMI, no JVD. No pulse deficits. Respiratory: Lungs have equal breath sounds bilaterally, clear to auscultation and percussion. No rales, rhonchi or wheezes noted. No increased work of breathing, no retractions or nasal flaring. Abdomen/GI: Soft, non-tender, with normal bowel sounds. No distension or tympany. No guarding or rebound. No evidence of tenderness throughout. Back: No spinal tenderness. No costovertebral tenderness. Full range of motion. Skin: Warm, dry with normal turgor. Normal color with no rashes, no lesions, and no evidence of cellulitis. MS/ Extremity: Pulses equal, no cyanosis. Neurovascular intact. Full, normal range of motion. Neuro: Awake and alert, GCS 15, oriented to person, place, time, and situation. Cranial nerves II-XII grossly intact. Motor strength 5/5 in all extremities. Sensory grossly intact. Cerebellar exam normal. Normal gait. Psych: Awake, alert, with orientation to person, place and time. Behavior, mood, and affect are within normal limits. 03:40 ECG was reviewed by the Attending Physician. 03:55 ECG was reviewed by the Attending Physician. deysi 03:56 ECG was reviewed by the Attending Physician. deysi Vital Signs: 02:30 BP 110 / 64; Pulse 71; Resp 16; Pulse Ox 96% on R/A; jb4 03:30 BP 95 / 54; Pulse 83; Resp 17; Pulse Ox 97% on R/A; jb4 04:30 BP 102 / 59; Pulse 77; Resp 19; Pulse Ox 96% on R/A; jb4 05:30 BP 102 / 58; Pulse 78; Resp 16; Pulse Ox 95% on R/A; jb4 06:30 BP 100 / 58; Pulse 80; Resp 16; Pulse Ox 97% on R/A; jb4 07:50 BP 100 / 58; Pulse 76; Resp 16; Pulse Ox 96% on R/A; tp1 08:30 BP 103 / 59; Pulse 78; Resp 16; Pulse Ox 95% on R/A; tp1 19:00 BP 124 / 76; Pulse 74; Resp 17 S; Pulse Ox 96% on R/A; lg3 21:00 BP 126 / 76; Pulse 74; Resp 18 S; Pulse Ox 98% on R/A; lg3 23:30 BP 122 / 63; Pulse 76; Resp 16 S; Pulse Ox 97% on R/A; lg3 /07 01:30 BP 122 / 74; Pulse 75; Resp 17 S; Pulse Ox 96% on R/A; lg3 03:15 BP 122 / 63; Pulse 78; Resp 17 S; Pulse Ox 98% on R/A; lg3 05:14 BP 125 / 77; Pulse 81; Resp 16 S; Pulse Ox 98% on R/A; lg3 07:20 BP 116 / 72; Pulse 73; Resp 16; Temp 97.6(O); Pulse Ox 99% ; Pain 0/10; jh6 MDM: 01/20 01:48 Patient medically screened. [facility] 03:42 Differential diagnosis: Ingestion/exposure to wellbutrin/trazadone. Data reviewed: [facility] vital signs, nurses notes, lab test result(s), EKG. Data interpreted: panel monitor: rate is 71 beats/min, rhythm is regular, Pulse oximetry: on room air. Test interpretation: by ED physician or midlevel provider: ECG. Counseling: I had a detailed discussion with the patient and/or guardian regarding: the historical points, exam findings, and any diagnostic results supporting the discharge/admit diagnosis, lab results, radiology results, the need to transfer to another facility, for higher level of care, [facility] does not immediately have the required specialist. 01/21 16:57 ED course: Discussed case with Dr Espino and she accepts patient to [place] [id number] 01/20 01:41 Order name: Acetaminophen; Complete Time: 02:50 tw5 01/20 01:41 Order name: Basic Metabolic Panel; Complete Time: 02:50 tw5 01/20 01:41 Order name: CBC with Diff; Complete Time: 02:50 tw01/20 01:41 Order name: ETOH Level; Complete Time: 02:50 tw01/20 01:41 Order name: Hepatic Function; Complete Time: 02:50 tw01/20 01:41 Order name: PT-INR; Complete Time: 02:17 tw5 01/20 01:41 Order name: Ptt, Activated; Complete Time: 02:17 tw5 01/20 01:41 Order name: Salicylate; Complete Time: 02:50 tw5 01/20 01:41 Order name: Urine Drug Screen; Complete Time: 02:17 tw5 01/20 01:49 Order name: SARS RAPID; Complete Time: 02:[address] [facility] 01/20 01:52 Order name: Urine --Ancillary (enter results); Complete Time: 02:50 as6 01/20 01:53 Order name: Urine Dipstick-Ancillary; Complete Time: 02:17 EDMS 01/20 06:37 Order name: Salicylate; Complete Time: 23:10 jb4 01/20 10:46 Order name: ETOH Level; Complete Time: 16:56 em1 01/20 01:41 Order name: Brian; Complete Time: 01:46 tw5 01/20 01:41 Order name: EKG; Complete Time: 01:42 01/20 01:41 Order name: EKG - Nurse/Tech; Complete Time: 01:46 01/20 01:41 Order name: IV Saline Lock; Complete Time: 01:46 01/20 01:41 Order name: Labs collected and sent; Complete Time: 01:46 tw01/20 01:41 Order name: Suicide Precautions; Complete Time: 01:46 01/20 01:41 Order name: Suicide Screening ([place]); Complete Time: 01:46 01/20 01:41 Order name: Urine Dipstick-Ancillary (obtain specimen); Complete Time: 01:51 tw5 01/20 10:08 Order name: Diet Finger Food; Complete Time: 10:08 tp1 01/20 15:03 Order name: Alcohol Serum/Plasma; Complete Time: 23:10 EDMS 01/20 15:57 Order name: Diet Finger Food; Complete Time: 22:31 em6 01/21 00:31 Order name: ETOH Level; Complete Time: 16:56 wm 01/21 07:34 Order name: Diet Finger Food; Complete Time: 07:35 [facility] 01/21 16:49 Order name: Diet Finger Food; Complete Time: 16:49 [facility] 01/20 01:41 Order name: Urine Test (obtain specimen); Complete Time: 01:51 tw01/20 01:49 Order name: Misc. Order: call poison control; Complete Time: 01:53 deysi EC/06 03:55 Rate is 86 beats/min. Rhythm is regular. QRS Curlew is Normal. MD interval is normal. QRS deysi interval is normal at 497 msec. QT interval is normal. No Q waves. T waves are Normal. No ST changes noted. Clinical impression: No change from prior ECG and No evidence of ischemia. Interpreted by me. Reviewed by me. 03:56 Rate is 86 beats/min. Rhythm is regular. MD interval is normal. QRS interval is normal. deysi QT interval is prolonged. Clinical impression: Normal ECG and NSR w/ Non-specific ST/T Changes. Administered Medications: 02:07 Drug: NS 0.9% 1000 ml Route: IV; Rate: 1 bolus; Site: right antecubital; jb4 08:47 Drug: Potassium Effervescent Tablet 25 mEq Route: PO; tp1 09:58 Follow up: Response: No adverse reaction tp1 Disposition Summary: 01/20/22 03:48 Transfer Ordered Transfer Location: Psych Facility deysi Reason: Higher level of care deysi Condition: Fair deysi Problem: new deysi Symptoms: have improved deysi Accepting Physician: to psych(01/21/22 19:27) kd3 Diagnosis - Adjustment disorder with depressed mood deysi - Suicide attempt deysi - Suicidal ideations deysi - Weakness deysi - Alcohol abuse with intoxication deysi - Hypokalemia deysi Forms: - Medication Reconciliation Form deysi - SBAR form deysi Critical care time excluding procedures: 03:42 Critical care time: Bedside Care: 25 minutes, Consultation: 10 minutes, Family deysi Intervention: 2 minutes. Total time: 37 minutes Signatures: Dispatcher [employer] EDRashaun Bains MD MD cha Bryson, James, RN RN jb4 Jesus Cooney DO DO ms3 Betty Mathis tw5 Alma Christine RN RN kd3 Betty Croft RN RN tp1 Christy Mayberry PA PA sb3 Corrections: (The following items were deleted from the chart) 03:56 03:40 Rate is 50 beats/min. Rhythm is regular. QRS Curlew is Normal. MD interval is deysi normal. QRS interval is normal. QT interval is normal. No Q waves. T waves are Normal. No ST changes noted. Clinical impression: NSR w/ Non-specific ST/T Changes and No evidence of ischemia. Interpreted by me. Reviewed by me. deysi 04:36 03:[address] [facility] deysi 22:23 20:06 ETHANOL+C.LAB.BRZ ordered. EDNM EDNM 01/21 19:27 09 04:36 to psych deysi kd3
--- NOTE | 2022-01-20 03:49 | ER ---
Nurse's Notes [facility] Name: Shira Muse Age: 31 yrs Sex: Female : 1990 Arrival Date: 01/20/2022 Time: 01:26 Bed 18 Private MD: Diagnosis: Adjustment disorder with depressed mood;Suicide attempt;Suicidal ideations;Weakness;Alcohol abuse with intoxication;Hypokalemia Presentation: 01/20 02:12 Chief complaint: Spouse and/or significant other states: pt took a bottle of Wellbutrin as6 and trazodone, report that pt has recently lost her job. Coronavirus screen: At this time, the client does not indicate any symptoms associated with coronavirus-19. Ebola Screen: No symptoms or risks identified at this time. Risk Assessment: Do you want to hurt yourself or someone else? Patient reports desire/thoughts of hurting themselves or someone else. Provider notified. Onset of symptoms was January 20, 2022. 02:12 Method Of Arrival: Wheelchair as6 02:26 Acuity: GAVI 1 as6 02:26 Initial Sepsis Screen: Does the patient meet any 2 criteria? No. Patient's initial as6 sepsis screen is negative. Does the patient have a suspected source of infection? No. Patient's initial sepsis screen is negative. Historical: - Allergies: 07:28 Aspirin; jb4 07:28 PENICILLINS; jb4 - Home Meds: 07:28 amlodipine oral [Active]; Trazodone Oral [Active]; Buspirone Oral [Active]; Wellbutrin jb4 Oral [Active]; - PMHx: 07:28 Anxiety; Depression; Bipolar disorder; jb4 - Immunization history:: Adult Immunizations up to date. - Family history:: not pertinent. - Social history:: Smoking status: unknown. Screenin:30 Abuse screen: Denies threats or abuse. Nutritional screening: No deficits noted. jb4 Tuberculosis screening: No symptoms or risk factors identified. Fall Risk None identified. Assessment: 01:28 General: Appears in no apparent distress. Behavior is combative, restless, jb4 uncooperative. Pain: Unable to use pain scale. FLACC scale score is 0 out of 10. Neuro: Level of Consciousness is confused, Oriented to none Responds to painful stimuli.. Cardiovascular: Patient's skin is warm and dry. Respiratory: Airway is patent Respiratory effort is even, unlabored, Respiratory pattern is regular, symmetrical. GI: No signs and/or symptoms were reported involving the gastrointestinal system. : No signs and/or symptoms were reported regarding the genitourinary system. EENT: No signs and/or symptoms were reported regarding the EENT system. Derm: Skin is intact, Skin is pink, warm \\T\\ dry. Musculoskeletal: Circulation, motion, and sensation intact. Range of motion: intact in all extremities. 01:39 General: km gongoraienvanessa- [phone] . tw5 01:40 General: luis a olea- [phone]. tw5 01:54 General: poison control . tw5 01:55 General: per poison control, monitor potassium and magnesium levels and replace as tw5 needed. monitor for elongation of ORS complex, signs and symptoms of possible seratonin syndrome and respiratory depression. intervene with symptomatic care if needed. use of Benzodiazepines recommended for agitation. . 02:30 Reassessment: Pt is now awake and alert. Is talking to staff and family, cooperating jb4 with staff. Pt admits to suicidal attemp. 03:30 Reassessment: Pt is resting in bed with eyes closed, respirations are even and jb4 unlabored with no s/s of pain or distress ntoed. 04:30 Reassessment: Patient appears in no apparent distress at this time. No changes from jb4 previously documented assessment. Patient and/or family updated on plan of care and expected duration. Pain level reassessed. 05:30 Reassessment: Patient appears in no apparent distress at this time. No changes from jb4 previously documented assessment. Patient and/or family updated on plan of care and expected duration. Pain level reassessed. 06:50 Reassessment: Patient appears in no apparent distress at this time. Patient and/or jb4 family updated on plan of care and expected duration. Pain level reassessed. Patient is alert, oriented x 3, equal unlabored respirations, skin warm/dry/pink. Brian d/c'ed per pt's request. 07:15 General: Appears in no apparent distress. comfortable, Behavior is calm, cooperative. tp1 General: resting in bed with eyes closed. sitter at bedside. . Respiratory: Airway is patent Respiratory effort is even, unlabored. 07:15 Cardiovascular: Patient's skin is warm and dry. tp1 09:16 Reassessment: Patient appears in no apparent distress at this time. No changes from tp1 previously documented assessment. resting in bed with eyes closed. 17:31 Reassessment: sister, Any, called. updated on status of PT. tp1 18:30 Reassessment: assisted to restroom. tp1 19:23 Reassessment: Patient appears in no apparent distress at this time. Patient is alert, lg3 oriented x 3, equal unlabored respirations, skin warm/dry/pink. pt is drowsy and resting quietly in bed at this time. sitter at bedside. 22:33 Reassessment: Patient appears in no apparent distress at this time. No changes from lg3 previously documented assessment. pt quietly resting at this time. 23:25 General: assisted to restroom. lg3 / 02:38 General: [facility] gold plater at bedside . lg3 02:55 Reassessment: Patient appears in no apparent distress at this time. Patient is alert, lg3 oriented x 3, equal unlabored respirations, skin warm/dry/pink. General: pt quietly watching tv at this time . 05:15 Reassessment: Patient appears in no apparent distress at this time. Patient is alert, lg3 oriented x 3, equal unlabored respirations, skin warm/dry/pink. pt quietly resting at this time. 06:41 Reassessment: Patient appears in no apparent distress at this time. No changes from lg3 previously documented assessment. 07:20 General: Appears in no apparent distress. comfortable, Behavior is calm, cooperative, jh6 pt sleeping when walked into room. Woke pt up and introduced myself and asked if she needed anything. pt cooperative and responded no that she was fine. . 11:04 General: Pt awake now sitting up in bed watching tv. Pt did eat 50% of breakfast when jh6 she woke up. . 14:01 Reassessment: Patient is alert, oriented x 3, equal unlabored respirations, skin jh6 warm/dry/pink. friend at bedside speaking with pt. pt laughing and talking freely. pt was able to eat most of lunch and was updated on plan of care and wait list for [facility]. Psych: 01/20 02:30 [place] Suicide Severity Screening: In the past month, have you wished you were jb4 or wished you could go to sleep and not wake up? Patient responds "yes." Based off the client's responses additional C-SSRS screening is required. "In the past month, have you actually had any thoughts of killing yourself?" Patient responds "yes." Based off the client's response additional [place] suicide severity screening questions to be further documented on paper forms. "In your lifetime, have you ever done anything, started to do anything, or prepared to do anything to end your life?" Patient responds "yes." Patient reports suicidal intent within 3 past months. Subjective: Patient's mood is hopeless, Delusions are denied, Hallucinations are denied Having thoughts of suicide. Plan for suicide is Pt attempted suicide, by overdosing on her home medications. Objective: Patient is cooperative, Speech is normal, Affect is appropriate. Interventions: Removed personal items and placed in bag. Patient placed in hospital gown. Searched person for dangerous items. Urine collected and sent for urine drug test. Belonging list filled out. Safety Checks: Personal items have been removed. Door is open. Visitors are present. Patient uses Last use was 2 hours ago. 02:30 Commitment: Patient will be a voluntary commitment. jb4 Overdose: 01:45 Patient took See nurses note. Overdose occurred 1-2 hours ago. 4 02:30 [place] Suicide Severity Screening: "In the past month, have you wished you were jb4 or wished you could go to sleep and not wake up?" Patient responds "yes." Based off client's responses, additional C-SSRS screening questions required. "In the past month, have you actually had any thoughts of killing yourself?" Patient responds "yes." Based off client's responses, additional C-SSRS screening questions required. "In your lifetime, have you ever done anything, started to do anything, or prepared to do anything to end your life?" Patient responds "yes." Patient reports suicidal intent within 3 past months. Vital Signs: 02:30 BP 110 / 64; Pulse 71; Resp 16; Pulse Ox 96% on R/A; jb4 03:30 BP 95 / 54; Pulse 83; Resp 17; Pulse Ox 97% on R/A; jb4 04:30 BP 102 / 59; Pulse 77; Resp 19; Pulse Ox 96% on R/A; jb4 05:30 BP 102 / 58; Pulse 78; Resp 16; Pulse Ox 95% on R/A; jb4 06:30 BP 100 / 58; Pulse 80; Resp 16; Pulse Ox 97% on R/A; jb4 07:50 BP 100 / 58; Pulse 76; Resp 16; Pulse Ox 96% on R/A; tp1 08:30 BP 103 / 59; Pulse 78; Resp 16; Pulse Ox 95% on R/A; tp1 19:00 BP 124 / 76; Pulse 74; Resp 17 S; Pulse Ox 96% on R/A; lg3 21:00 BP 126 / 76; Pulse 74; Resp 18 S; Pulse Ox 98% on R/A; lg3 23:30 BP 122 / 63; Pulse 76; Resp 16 S; Pulse Ox 97% on R/A; lg3 / 01:30 BP 122 / 74; Pulse 75; Resp 17 S; Pulse Ox 96% on R/A; lg3 03:15 BP 122 / 63; Pulse 78; Resp 17 S; Pulse Ox 98% on R/A; lg3 05:14 BP 125 / 77; Pulse 81; Resp 16 S; Pulse Ox 98% on R/A; lg3 07:20 BP 116 / 72; Pulse 73; Resp 16; Temp 97.6(O); Pulse Ox 99% ; Pain 0/10; jh6 ED Course: 01/20 01:26 Patient arrived in ED. ja2 01:30 Patient has correct armband on for positive identification. Placed in gown. Bed in low jb4 position. Call light in reach. Side rails up X 1. Client placed on continuous cardiac and pulse oximetry monitoring. NIBP monitoring applied. media monitor on. 01:42 Inserted saline lock: 20 gauge in right antecubital area, using aseptic technique. tw5 Blood collected. 01:43 Brian cath inserted, using sterile technique, 18 Fr., by ED staff, balloon inflated, to tw5 gravity drainage, urine specimen collected. 01:48 Rashaun Skaggs MD is Attending Physician. deysi 01:48 Matthew Frank, VERONICA is Primary Nurse. as6 01:52 Acetaminophen Sent. jb4 01:52 Basic Metabolic Panel Sent. jb4 01:52 CBC with Diff Sent. jb4 01:52 ETOH Level Sent. jb4 01:52 Hepatic Function Sent. jb4 01:52 PT-INR Sent. jb4 01:52 Ptt, Activated Sent. jb4 01:52 Salicylate Sent. jb4 01:52 Urine Drug Screen Sent. jb4 01:57 SARS RAPID Sent. jb4 01:58 Urine --Ancillary (enter results) Sent. tw5 02:15 Triage completed. as6 07:15 Safety Checks: Personal items have been removed. The door is open or patient has been tp1 placed in a hallway bed/chair. There are no family/friend visitors at this time Sitter present at this time. 08:19 Safety Checks: Personal items have been removed. The door is open or patient has been tp1 placed in a hallway bed/chair. There are no family/friend visitors at this time Sitter present at this time. Other: resting with eyes closed, respirations even and unlabored. 09:08 Primary Nurse role handed off by Matthew Frank RN em1 09:15 Betty Croft, VERONICA is Primary Nurse. tp1 09:15 Safety Checks: Personal items have been removed. The door is open or patient has been tp1 placed in a hallway bed/chair. There are no family/friend visitors at this time Sitter present at this time. 10:15 Safety Checks: Personal items have been removed. The door is open or patient has been tp1 placed in a hallway bed/chair. There are no family/friend visitors at this time Sitter present at this time. appears in NAD, resting with eyes closed. 11:15 Safety Checks: Personal items have been removed. The door is open or patient has been tp1 placed in a hallway bed/chair. There are no family/friend visitors at this time Sitter present at this time. appears NAD, resting with eyes closed. 12:15 Safety Checks: Personal items have been removed. The door is open or patient has been tp1 placed in a hallway bed/chair. There are no family/friend visitors at this time Sitter present at this time. appears in NAD, lunch tray at bedside. no questions or concerns. 13:24 Safety Checks: Personal items have been removed. The door is open or patient has been tp1 placed in a hallway bed/chair. There are no family/friend visitors at this time Sitter present at this time. appears NAD, resting with eyes closed. denies pain. 14:15 Safety Checks: Personal items have been removed. The door is open or patient has been tp1 placed in a hallway bed/chair. There are no family/friend visitors at this time Sitter present at this time. 15:12 Safety Checks: Personal items have been removed. The door is open or patient has been tp1 placed in a hallway bed/chair. There are no family/friend visitors at this time Sitter present at this time. resting with eyes closed. 16:09 Safety Checks: Personal items have been removed. The door is open or patient has been tp1 placed in a hallway bed/chair. There are no family/friend visitors at this time Sitter present at this time. no questions or concerns at this time. 17:16 Safety Checks: Personal items have been removed. The door is open or patient has been tp1 placed in a hallway bed/chair. There are no family/friend visitors at this time Sitter present at this time. 18:00 Safety Checks: Personal items have been removed. The door is open or patient has been tp1 placed in a hallway bed/chair. There are no family/friend visitors at this time Sitter present at this time. Other: resting in bed with eyes closed, respirations even and unlabored. 20:30 role handed off by Tamera Redd RN 01/21 00:41 Called [facility] to get Pt screened, spoke with Vasquez. wm 02:13 Mauricio with [facility] came to screen Pt. wm 03:28 Faxed the following facilities for possible placement: [facility] [place] [place], [facility], [facility], [facility], [facility], [facility], [facility], [facility], [facility], [facility], and [place] 10:45 spoke with Nelia at [facility], pts are being discharged, she will get back with us bd as soon as there is a bed available. 18:06 pt accepted in transfer to [facility] by dr Segura, admin approval given by dylon Handy. 19:26 No provider procedures requiring assistance completed. IV discontinued, intact, kd3 bleeding controlled, No redness/swelling at site. Pressure dressing applied. 19:27 Arm band placed on. kd3 Administered Medications: 01/20 02:07 Drug: NS 0.9% 1000 ml Route: IV; Rate: 1 bolus; Site: right antecubital; jb4 08:47 Drug: Potassium Effervescent Tablet 25 mEq Route: PO; tp1 09:58 Follow up: Response: No adverse reaction tp1 Medication: 01/21 19:27 VIS not applicable for this client. kd3 Outcome: 01/20 03:48 ER care complete, transfer ordered by MD. jo 01/21 19:26 Transferred by ground EMS kd3 Condition: stable Discharge instructions given to patient, Instructed on discharge instructions, Demonstrated understanding of instructions. 19:27 Patient left the ED. kd3 Signatures: Coty Márquez Corey, MD MD cha Martinez, Randy em1 Juan Falcon, RN RN jb4 Ekaterina Hunt, RN RN raisa3 Debi Pat Jessica ja2 Wood, Tiffany tw5 Matthew Frank RN RN as6 Alma Christine RN RN kd3 Ana Espinoza RN RN jh6 Betty Croft, RN RN tp1 Corrections: (The following items were deleted from the chart) 01/20 02:26 02:12 Acuity: GAVI 2 as6 as6 07:51 07:00 General: received report from Ekaterina MARTIN, stated CSSRS packet has not been tp1 completed. . tp1 07:51 07:15 General: resting in bed with eyes closed. . tp1 tp1 08:00 01:28 Temp 98.6F; 68 kg; jb4 jb4 13:27 10:15 Safety Checks: Personal items have been removed. The door is open or patient has tp1 been placed in a hallway bed/chair. There are no family/friend visitors at this time Sitter present at this time. tp1 13:27 11:15 Safety Checks: Personal items have been removed. The door is open or patient has tp1 been placed in a hallway bed/chair. There are no family/friend visitors at this time Sitter present at this time. tp1 13:27 12:15 Safety Checks: Personal items have been removed. The door is open or patient has tp1 been placed in a hallway bed/chair. There are no family/friend visitors at this time Sitter present at this time. tp1 22:23 20:12 ETHANOL+C.LAB.TOÑITO drawn and sent. lg3 EDMS 01/21 03:18 03:15 BP 122 / 63; Pulse 78bpm; Resp 18bpm; Spontaneous; Pulse Ox 98% RA; lg3 lg3
[2022-01-20] MEDS ORDERED: POTASSIUM 25 MEQ EFFERV TAB ONE (08:37)
--- NOTE | 2022-01-20 14:30 | EKG ---
Test Date: 2022-01-20 Test Time: 03:53:10 Monument Erector: VERONICA MEASUREMENT RESULTS: Intervals: Rate: 86 MO: 122 QRSD: 72 QT: 416 QTc: 497 [place]: P: 58 MO: 122 QRS: 56 T: 52 INTERPRETIVE STATEMENTS: Normal sinus rhythm Nonspecific T wave abnormality Prolonged QT Abnormal ECG Compared to ECG 07/19/2021 11:44:32 Prolonged QT interval now present Sinus tachycardia no longer present Atrial abnormality no longer present T-wave abnormality still present Electronically Signed On 01-20-22 14:29:07 CDT by Vamsi Duarte
[2022-01-21 21:58] VITALS: BP 116/72; TEMP 97.6; O2SAT 99
== END 2022-01-21 19:27 ==
LOC: ER 01:25
DX: T42.4X2A Poisoning by benzodiazepines, intentional self-harm, initial encounter (principal); F10.129 Alcohol abuse with intoxication, unspecified; F43.21 Adjustment disorder with depressed mood; E87.6 Hypokalemia; R53.1 Weakness; Z88.0 Allergy status to penicillin; Z88.6 Allergy status to analgesic agent; Z20.822 Contact with and (suspected) exposure to COVID-19
CPT/HCPCS: 36415; 80048; 80076; 80307; 80320; 80329; 81003; 81025; 85025; 85610; 85730; 87811; 93005; J7030